=== PATIENT | female | born 1975 | race Caucasian/White ===

== ENCOUNTER 2016-07-09 10:19 | Outpatient (CLI) | payer BC ==
[2016-07-09] MEDS ORDERED: Lactated Ringers 1,000 ML IV SCH (10:30)
[2016-07-09] MEDS ORDERED: Metoclopramide 10 MG/2 ML SDV IVPUSH ONE (10:31)
[2016-07-09] MEDS: Ondansetron 4 MG/2 ML SDV IVPUSH PRN ×2 (10:51→15:59)
[2016-07-09] MEDS: Sodium Chloride 0.9% 1,000 ML IV SCH ×2 (10:52→11:56)
[2016-07-09] MEDS: Promethazine 25 MG/ML SDV IM PRN ×2 (10:58→15:59)
[2016-07-09] MEDS ORDERED: HYDROmorphone 1 MG/ML Syringe IVPUSH PRN (11:02)
[2016-07-09 11:14] LABS: CHLORIDE,CL 106 mmol/L (98-110); SODIUM,NA 136 mmol/L (136-146)
[2016-07-09] MEDS ORDERED: HYDROmorphone 2 MG/ML Syringe IVPUSH PRN (11:29)
[2016-07-09] MEDS ORDERED: HYDROmorphone 2 MG/ML Syringe IVPUSH ONE (18:18)
== END 2016-07-09 19:27 | disposition home or self-care (01) ==
LOC: MW.OBCHECK 10:19 → MW.OB 10:22 → MW.OBCHECK 19:27
PROVIDERS: ATTEND Obstetrics & Gynecology
DX: O21.0 Mild hyperemesis gravidarum (principal)
CPT/HCPCS: 36415; 59025; 80053; 81001; 82150; 83690; 85025; J1170; J2405; J2550; J2765; J7040; J7120; 96361; 96374; 96375; 96376

== ENCOUNTER 2016-07-09 19:36 | Emergency (ER) | payer BC ==
[2016-07-09 19:47] VITALS: BP 137/87
--- NOTE | 2016-07-09 20:06 | EDM.PDOC ---
ED HPI GI/ABDOMINAL - General Chief Complaint: Abdominal Pain Stated Complaint: STOMACH PAIN Time Seen by Provider: 07/09/16 19:42 Source of Information: Reports: Patient History Limitations: Reports: No limitations - History of Present Illness INITIAL COMMENTS - FREE TEXT/NARRATIVE: HISTORY AND PHYSICAL: History of present illness: [] 41-year-old female 35 weeks with a history of chronic epigastric abdominal pain with presumed diagnosis of gastritis and treated with Prilosec. Patient went to her [facility] office and was there all day today getting monitored and cleared as well as hydrated with 3 L of normal saline. Patient received multiple doses of Dilaudid but upon discharge from the clinic they would not dispense her a narcotic prescription so she came to the emergency department. Patient has hyperemesis gravidarum as she has had during this entire . She has had chronic pain during the entire and exact location as her presentation now. Surgery removed her gallbladder without as a potential contributory etiology of her pain. Despite this patient continued to have chronic epigastric pain. Case discussed with surgeon Dr. Curry who operated on this patient gallbladder and states patient has no surgical issues with her epigastrium. Patient is clear that her symptoms have no change from her chronic symptoms during the entire and she was arty cleared by the [employer] service today. She is requesting pain pills to get her through the night she can followup with her doctor or [facility] [employer] doctor tomorrow to refill her narcotic prescription Review of systems: As per history of present illness and below otherwise all systems reviewed and negative. Past medical history: As per history of present illness and as reviewed below otherwise noncontributory. Surgical history: As per history of present illness and as reviewed below otherwise noncontributory. Social history: No reported history of drug or alcohol abuse. Family history: As per history of present illness and as reviewed below otherwise noncontributory. Physical exam: HEENT: Atraumatic, normocephalic, pupils reactive, negative for conjunctival pallor or scleral icterus, mucous membranes moist, throat clear, neck supple, nontender, trachea midline. Lungs: Clear to auscultation, breath sounds equal bilaterally, chest nontender. Heart: S1S2, regular, negative for clicks, rubs, or JVD. Abdomen: Soft, nondistended, minimal epigastric tenderness no guarding or rebound. Negative for masses or hepatosplenomegaly. Negative for costovertebral tenderness. Pelvis: Stable nontender. Genitourinary: Deferred. Rectal: Deferred. Extremities: Atraumatic, negative for cords or calf pain. Neurovascular unremarkable. Neuro: Awake, alert, oriented. Cranial nerves grossly unremarkable. Cerebellum unremarkable. Motor and sensory unremarkable throughout. Exam nonfocal. Diagnostics: [] Therapeutics: [] Impression: [] Plan: [] Definitive disposition and diagnosis as appropriate pending reevaluation and review of above. - Related Data Allergies/ADRs: Allergies Allergy/AdvReac Type Severity Reaction Status Date / Time tramadol Allergy Blurred Verified 07/09/16 19:48 Vision Home Meds: Home Meds Vit W-Ca,Fe,FA(<1 mg) [ Vitamins] 1 tab PO DAILY 02/14/16 [ History] Ondansetron HCl [Zofran] 4 mg PO Q6H PRN #30 tablet 04/13/16 [Rx] Omeprazole 40 mg PO DAILY 05/11/16 [History] oxyCODONE HCl/Acetaminophen [Percocet 7.5-325 mg Tablet] 1 each PO Q4H PRN #30 tablet 05/17/16 [Rx] Past Medical History - Past Health History Medical/Surgical History: Denies Medical/Surgical History HEENT History: Reports: None Cardiovascular History: Reports: Hypertension, Other (see below) Other Cardiovascular History: Brief episode of hypertension summer 2014, resolved without medication Respiratory History: Reports: None Gastrointestinal History: Reports: Other (see below) Other Gastrointestinal History: Gall stones Genitourinary History: Reports: None [employer] History: Reports: , Spontaneous , Other (see below) Other OB/BYN History: One spontaneous and one 21 week stillborn delivery. 3 living children and currently Musculoskeletal History: Reports: None Neurological History: Reports: Migraines Psychiatric History: Reports: None Endocrine/Metabolic History: Reports: Obesity/BMI 30+ Hematologic History: Reports: None Immunologic History: Reports: None Oncologic (Cancer) History: Reports: None Dermatologic History: Reports: None - Infectious Disease History Infectious Disease History: Reports: None - Past Surgical History Head Surgeries/Procedures: Reports: None HEENT Surgical History: Reports: None Cardiovascular Surgical History: Reports: None GI Surgical History: Reports: Appendectomy, Cholecystectomy Female Surgical History: Reports: section Endocrine Surgical History: Reports: None Musculoskeletal Surgical History: Reports: None Other Musculoskeletal Surgeries/Procedures:: bunionectomy - Past Imaging History Past Imaging History: Reports: Ultrasound (Normal exam) Social & Family History - Family History Family Medical History: Noncontributory HEENT: Reports: None Cardiac: Reports: None Respiratory: Reports: None GI: Reports: None : Reports: None OBGYN: Reports: None Musculoskeletal: Reports: None Neurological: Reports: None Psychiatric: Reports: None Endocrine/Metabolic: Reports: None Hematologic: Reports: None Immunologic: Reports: None Dermatologic: Reports: None Oncologic: Reports: None - Tobacco Use Smoking Status *Q: Never Smoker Second Hand Smoke Exposure: No - Caffeine Use Caffeine Use: Reports: None - Alcohol Use Days Per Week of Alcohol Use: 0 Number of Drinks Per Day: 1 Total Drinks Per Week: 0 - Recreational Drug Use Recreational Drug Use: No Drug Use in Last 12 Months: No ED ROS GENERAL - Review of Systems Review Of Systems: See Below (Per history of present illness) ED EXAM, GI/ABD - Physical Exam Exam: See Below (per history of present illness) Course - Vital Signs Text/Narrative:: History and findings consistent with patient's chronic epigastric pain/ gastritis during entire . She has a history of hyperemesis gravidarum but his are to been extensively hydrated with extensive analgesia today. Patient is very clear she is requesting narcotics by mouth this evening discussed with patient we do not typically prescribe narcotics from the emergency room for chronic pain however is willing to give her 3 or 4 [place] so she can f to your pain control regimen and follow up with her doctor in the morning. Signs unremarkable. Patient with a benign abdomen except minimal epigastric tenderness which he says is typical for her. No guarding or rebound. Normal bowel sounds. She is aware followup [facility] at her doctor in the morning. Strict return precautions given Last Recorded V/S: Last Vital Signs Temp 36.6 C 07/09/16 19:44 Pulse 98 07/09/16 19:44 Resp 18 07/09/16 19:44 BP 137/87 07/09/16 19:44 Pulse Ox 96 07/09/16 19:44 Departure - Departure Time of Disposition: 20:01 Disposition: Home, Self-Care 01 Condition: good Clinical Impression: Abdominal pain during , Gastritis, Hyperemesis gravidarum Instructions: Gastritis, Adult, [id number], Abdominal Pain During , [id number], Hyperemesis Gravidarum Forms: ED Department Discharge Additional Instructions: There does not appear to be any change in your chronic epigastric abdominal pain during which has been presumed to be caused by gastritis and for which you're taking your omeprazole. Since you were just seen your [facility] office and were there for a good part of the day receiving IV fluids monitoring and evaluation including labs, there is nothing more to do at this time. You don 't have any signs of a surgical emergency and as mentioned you have been evaluated monitored and cleared by your [facility] service. The aware that your request for narcotic prescription will not be typically accommodated in the emergency department as we do not treat chronic pain narcotics from the emergency department. A your responsibility to be proactive in keeping your prescriptions for pain control filled and anticipating when they may run out then collaborating with your primary care doctor and [facility] [employer] doctor. Followup with your [facility] doctor tomorrow.
== END 2016-07-09 20:31 | disposition home or self-care (01) ==
LOC: MW.ED 19:36
DX: O09.523 Supervision of elderly multigravida, third trimester (principal); O26.893 Other specified pregnancy related conditions, third trimester; O21.0 Mild hyperemesis gravidarum; K29.70 Gastritis, unspecified, without bleeding; I10 Essential (primary) hypertension; E66.9 Obesity, unspecified; Z3A.35 35 weeks gestation of pregnancy; Z90.49 Acquired absence of other specified parts of digestive tract; Z88.5 Allergy status to narcotic agent
CPT/HCPCS: 99283

== ENCOUNTER → 2016-07-17 | Outpatient (CLI) | payer BC | END | disposition home or self-care (01) | LOC: MW.CHOBGYN 16:29 | PROVIDERS: ATTEND Obstetrics & Gynecology | DX: O09.529 Supervision of elderly multigravida, unspecified trimester (principal); R10.9 Unspecified abdominal pain | CPT/HCPCS: 36415; 81003; 82150; 83690; 87081 ==

== ENCOUNTER 2016-07-23 08:27 | Outpatient (CLI) | payer BC ==
[2016-07-23] MEDS: Magnesium Hydroxide 400 MG/5 ML Susp 30 ML Cup PO SCH ×2 (09:45→11:53)
== END 2016-07-23 12:30 | disposition home or self-care (01) ==
LOC: MW.OBCHECK 08:27 → MW.OB 08:28 → MW.OBCHECK 12:30
PROVIDERS: ATTEND Obstetrics & Gynecology
DX: O47.9 False labor, unspecified (principal); R10.9 Unspecified abdominal pain; K59.00 Constipation, unspecified
CPT/HCPCS: 59025; A9270

== ENCOUNTER 2016-07-26 10:51 | Inpatient (IN) | payer BC ==
[2016-07-26] MEDS ORDERED: Sodium Chloride 0.9% 10 ML Syringe FLUSH PRN ×2 (12:51→13:13)
[2016-07-26] MEDS ORDERED: Sodium Chloride 0.9% 2.5 ML Syringe FLUSH PRN ×2 (12:51→13:13)
[2016-07-26] MEDS ORDERED: Lactated Ringers 1,000 ML IV SCH ×2 (13:00→18:15)
[2016-07-26] MEDS ORDERED: ceFAZolin 2 GM in Premix Bag 1 BAG IV ONE (13:13)
[2016-07-26] MEDS ORDERED: Citric Acid/Sodium Citrate Solution 30 ML Cup PO SCH (13:15)
--- NOTE | 2016-07-26 13:44 | US ---
EXAMINATION: Abdominal ultrasound HISTORY: Chronic pain COMPARISON: MRI dated 05/13/2016 TECHNIQUE: Grayscale and color Doppler images obtained of the abdomen. FINDINGS: The liver appears normal in contour and echogenicity without a focal hepatic mass. Cholecy stectomy. There is vague fluid near the gallbladder fossa, abutting the pancreas. This measures appr oximately 2.7 x 1.3 cm. The pancreas otherwise appears normal in echotexture. The right kidney measu res 11.9 cm and the left kidney measures 12.1 cm [id number] without evidence of hydronephrosis. Th e spleen appears normal. The visualized IVC appears normal. Imaging of the aorta is not included. IMPRESSION: 1. Small amount of fluid noted near the gallbladder fossa and the pancreas. The pancreas otherwise a ppears normal. This could represent inflammatory change from duodenitis or peptic ulcer disease. Cor relation with pancreatic enzymes also may be beneficial.
[2016-07-26] MEDS ORDERED: Morphine 4 MG/ML Syringe IVPUSH ONE (13:45)
[2016-07-26] MEDS ORDERED: Ondansetron 4 MG/2 ML SDV IVPUSH ONE (13:45)
[2016-07-26 13:53] LABS: CHLORIDE,CL 106 mmol/L (98-110); SODIUM,NA 139 mmol/L (136-146)
[2016-07-26] MEDS: Lactated Ringers 1,000 ML IV SCH ×2 (14:11→16:28)
--- NOTE | 2016-07-26 14:23 | PCM.PREANE ---
Preanesthetic Assessment - Procedure Proposed Procedure: ; repeat, last 2013. - Anesthesia/Transfusion/Family Hx Anesthesia History: Prior Anesthesia Without Reaction Family History of Anesthesia Reaction: No Transfusion History: No Prior Transfusion(s) Additional History: Cholecystectomy this approx. 13 wks; with abdominal pain problem since with 40lb weight loss. Now presents with [employer] posting for C- section; concerns discussed with Tawny Alexander, and [place]. Possible problems with patient post delivery, possible problems with delivered infant, and patient is aware. - Review of Systems General: Other (Exaggerated abdominal pain expressed. monitor seems OK. Patient listened to concerns.) Pulmonary: No Symptoms Cardiovascular: No Symptoms Gastrointestinal: Abdominal pain, Nausea, Vomiting Neurological: No Symptoms Other: Reports: Anxiety - Physical Assessment Height: 5 ft 4.17 in Weight: 196 lb 9.793 oz Mental Status: Alert & Oriented x3 (plus voicing discomforts) Airway Class: Mallampati = 1 Dentition: Reports: Normal Dentition Thyro-Mental Finger Breadths: 3 Mouth Opening Finger Breadths: 3 ROM/Head Extension: Full Lungs: Clear to auscultation, Normal respiratory effort Cardiovascular: Regular Rate, Regular Rhythm - Lab Values: Laboratory Last Values WBC 11.35 K/uL (4.0-11.0) H 07/26/16 13:12 RBC 3.96 M/uL (4.30-5.90) L 07/26/16 13:12 Hgb 11.8 g/dL (12.0-16.0) L 07/26/16 13:12 Hct 36.1 % (36.0-46.0) 07/26/16 13:12 MCV 91.2 fL (80.0-98.0) 07/26/16 13:12 MCH 29.8 pg (27.0-32.0) 07/26/16 13:12 MCHC 32.7 g/dL (31.0-37.0) 07/26/16 13:12 RDW Std Deviation 48.3 fl (28.0-62.0) 07/26/16 13:12 RDW Coeff of Anabell 15 % (11.0-15.0) 07/26/16 13:12 Plt Count 293 K/uL (150-400) 07/26/16 13:12 MPV 9.80 fL (7.40-12.00) 07/26/16 13:12 Neut % (Auto) 78.3 % (48.0-80.0) 07/26/16 13:12 Lymph % (Auto) 14.2 % (16.0-40.0) L 07/26/16 13:12 [place] % (Auto) 7.1 % (0.0-15.0) 07/26/16 13:12 Eos % (Auto) 0.4 % (0.0-7.0) 07/26/16 13:12 Baso % (Auto) 0.0 % (0.0-1.5) 07/26/16 13:12 Neut # (Auto) 8.9 K/uL (1.4-5.7) H 07/26/16 13:12 Lymph # (Auto) 1.6 K/uL (0.6-2.4) 07/26/16 13:12 [place] # (Auto) 0.8 K/uL (0.0-0.8) 07/26/16 13:12 Eos # (Auto) 0.0 K/uL (0.0-0.7) 07/26/16 13:12 Baso # (Auto) 0.0 K/uL (0.0-0.1) 07/26/16 13:12 Nucleated RBC % 0.0 /100WBC 07/26/16 13:12 Nucleated RBCs # 0 K/uL 07/26/16 13:12 Sodium 139 mmol/L (136-146) 07/26/16 13:12 Potassium 4.1 mmol/L (3.5-5.1) 07/26/16 13:12 Chloride 106 mmol/L (98-110) 07/26/16 13:12 Carbon Dioxide 19 mmol/L (21-31) L 07/26/16 13:12 BUN 5 mg/dL (6.0-23.0) L 07/26/16 13:12 Creatinine 0.6 mg/dL (0.6-1.5) 07/26/16 13:12 Est Cr Clr Drug Dosing 109.49 mL/min 07/26/16 13:12 Estimated GFR (MDRD) > 60.0 ml/min 07/26/16 13:12 Glucose 78 mg/dL (60-110) 07/26/16 13:12 Calcium 9.1 mg/dL (8.8-10.8) 07/26/16 13:12 Total Bilirubin 0.4 mg/dL (0.1-1.5) 07/26/16 11:33 Direct Bilirubin 0.2 mg/dL (0.0-0.5) 07/26/16 11:33 Indirect Bilirubin 0.2 mg/dL (0.0-1.0) 07/26/16 11:33 AST 10 IU/L (5-40) 07/26/16 11:33 ALT 8 IU/L (8-54) 07/26/16 11:33 Alkaline Phosphatase 127 (40-150) 07/26/16 11:33 Total Protein 6.4 g/dL (6.0-8.0) 07/26/16 11:33 Albumin 3.4 g/dL (3.5-5.0) L 07/26/16 11:33 Globulin 3.0 g/dL (2.0-3.5) 07/26/16 11:33 Albumin/Globulin Ratio 1.1 (1.3-2.8) L 07/26/16 11:33 Amylase 75 U/L (10-90) 07/26/16 11:33 Lipase 24 U/L (7-80) 07/26/16 11:33 - Allergies Allergies/Adverse Reactions: Allergies Allergy/AdvReac Type Severity Reaction Status Date / Time tramadol Allergy Blurred Verified 07/09/16 19:48 Vision - Blood Blood Available: No Product(s) Available: None - Anesthesia Plan Free Text/Narrative:: Discussion in person with all doctors involved. Alternate plans raised but not course chosen. Pre-Op Medication Ordered: Other (to receive some "analgesic" now per RN (order from [facility])) - Acknowledgements Anesthesia Type Planned: Spinal Pt an Appropriate Candidate for the Planned Anesthesia: Yes Alternatives and Risks of Anesthesia Discussed w Pt/Guardian: Yes Pt/Guardian Understands and Agrees with Anesthesia Plan: Yes PreAnesthesia Questionnaire - Past Health History Medical/Surgical History: Denies Medical/Surgical History HEENT History: Reports: None Cardiovascular History: Reports: Hypertension, Other (see below) Other Cardiovascular History: Brief episode of hypertension summer 2014, resolved without medication Respiratory History: Reports: None Gastrointestinal History: Reports: Other (see below) Other Gastrointestinal History: Gall stones Genitourinary History: Reports: None OBSTETRICS GYNECOLOGY PHYSICIAN History: Reports: , Spontaneous , Other (see below) Other OB/BYN History: One spontaneous and one 21 week stillborn delivery. 3 living children and currently Musculoskeletal History: Reports: None Neurological History: Reports: Migraines Psychiatric History: Reports: None Endocrine/Metabolic History: Reports: Obesity/BMI 30+ Hematologic History: Reports: None Immunologic History: Reports: None Oncologic (Cancer) History: Reports: None Dermatologic History: Reports: None - Infectious Disease History Infectious Disease History: Reports: None - Past Surgical History Head Surgeries/Procedures: Reports: None HEENT Surgical History: Reports: None Cardiovascular Surgical History: Reports: None GI Surgical History: Reports: Appendectomy, Cholecystectomy Female Surgical History: Reports: section Endocrine Surgical History: Reports: None Musculoskeletal Surgical History: Reports: None Other Musculoskeletal Surgeries/Procedures:: bunionectomy - Past Imaging History Past Imaging History: Reports: Ultrasound (Normal exam) - SUBSTANCE USE Smoking Status *Q: Never Smoker Tobacco Use Within Last Twelve Months: No Second Hand Smoke Exposure: No Days Per Week of Alcohol Use: 0 Number of Drinks Per Day: 1 Total Drinks Per Week: 0 Recreational Drug Use History: No - HOME MEDS Home Medications: Home Meds Vit W-Ca,Fe,FA(<1 mg) [ Vitamins] 1 tab PO DAILY 02/14/16 [ History] Ondansetron HCl [Zofran] 4 mg PO Q6H PRN #30 tablet 04/13/16 [Rx] Omeprazole 40 mg PO DAILY 05/11/16 [History] oxyCODONE HCl/Acetaminophen [Percocet 7.5-325 mg Tablet] 1 each PO Q4H PRN #30 tablet 05/17/16 [Rx] - CURRENT (IN HOUSE) MEDS Current Meds: Current Medications Citric Acid/Sodium Citrate (Bicitra Solution) 30 ml PO .ONCE MAGALY Lactated Ringer's (Ringers, Lactated) 1,000 mls @ 125 mls/hr IV ASDIRECTED MAGALY Lactated Ringer's (Ringers, Lactated) 1,000 mls @ 500 mls/hr IV .BOLUS MAGALY Last Admin: 07/26/16 14:11 Dose: 500 mls/hr Sodium Chloride (Saline Flush) 10 ml FLUSH ASDIRECTED PRN PRN Reason: Keep Vein Open Sodium Chloride (Saline Flush) 2.5 ml FLUSH ASDIRECTED PRN PRN Reason: Keep Vein Open Sodium Chloride (Saline Flush) 10 ml FLUSH ASDIRECTED PRN PRN Reason: Keep Vein Open Sodium Chloride (Saline Flush) 2.5 ml FLUSH ASDIRECTED PRN PRN Reason: Keep Vein Open Discontinued Medications Cefazolin Sodium/Dextrose 2 gm (/ Premix) 50 mls @ 100 mls/hr IV ONETIME ONE Stop: 07/26/16 13:42 Morphine Sulfate (Morphine) 4 mg IVPUSH ONETIME ONE Stop: 07/26/16 13:46 Last Admin: 07/26/16 14:11 Dose: 4 mg Ondansetron HCl (Zofran) 4 mg IVPUSH ONETIME ONE Stop: 07/26/16 13:46 Last Admin: 07/26/16 14:11 Dose: 4 mg Preanesthetic Assessment - ANESTHESIA/TRANSFUSION/FAMILY HX Anesthesia/Transfusion History: No Prior Transfusion(s), Prior Anesthesia (C- section and appy: no anesthesia issues noted) Family History of Anesthesia Reaction: No - PHYSICAL ASSESSMENT Height: 5 ft 4.17 in Weight: 196 lb 9.793 oz - LAB Values: Laboratory Last Values WBC 11.35 K/uL (4.0-11.0) H 07/26/16 13:12 RBC 3.96 M/uL (4.30-5.90) L 07/26/16 13:12 Hgb 11.8 g/dL (12.0-16.0) L 07/26/16 13:12 Hct 36.1 % (36.0-46.0) 07/26/16 13:12 MCV 91.2 fL (80.0-98.0) 07/26/16 13:12 MCH 29.8 pg (27.0-32.0) 07/26/16 13:12 MCHC 32.7 g/dL (31.0-37.0) 07/26/16 13:12 RDW Std Deviation 48.3 fl (28.0-62.0) 07/26/16 13:12 RDW Coeff of Anabell 15 % (11.0-15.0) 07/26/16 13:12 Plt Count 293 K/uL (150-400) 07/26/16 13:12 MPV 9.80 fL (7.40-12.00) 07/26/16 13:12 Neut % (Auto) 78.3 % (48.0-80.0) 07/26/16 13:12 Lymph % (Auto) 14.2 % (16.0-40.0) L 07/26/16 13:12 [place] % (Auto) 7.1 % (0.0-15.0) 07/26/16 13:12 Eos % (Auto) 0.4 % (0.0-7.0) 07/26/16 13:12 Baso % (Auto) 0.0 % (0.0-1.5) 07/26/16 13:12 Neut # (Auto) 8.9 K/uL (1.4-5.7) H 07/26/16 13:12 Lymph # (Auto) 1.6 K/uL (0.6-2.4) 07/26/16 13:12 [place] # (Auto) 0.8 K/uL (0.0-0.8) 07/26/16 13:12 Eos # (Auto) 0.0 K/uL (0.0-0.7) 07/26/16 13:12 Baso # (Auto) 0.0 K/uL (0.0-0.1) 07/26/16 13:12 Nucleated RBC % 0.0 /100WBC 07/26/16 13:12 Nucleated RBCs # 0 K/uL 07/26/16 13:12 Sodium 139 mmol/L (136-146) 07/26/16 13:12 Potassium 4.1 mmol/L (3.5-5.1) 07/26/16 13:12 Chloride 106 mmol/L (98-110) 07/26/16 13:12 Carbon Dioxide 19 mmol/L (21-31) L 07/26/16 13:12 BUN 5 mg/dL (6.0-23.0) L 07/26/16 13:12 Creatinine 0.6 mg/dL (0.6-1.5) 07/26/16 13:12 Est Cr Clr Drug Dosing 109.49 mL/min 07/26/16 13:12 Estimated GFR (MDRD) > 60.0 ml/min 07/26/16 13:12 Glucose 78 mg/dL (60-110) 07/26/16 13:12 Calcium 9.1 mg/dL (8.8-10.8) 07/26/16 13:12 Total Bilirubin 0.4 mg/dL (0.1-1.5) 07/26/16 11:33 Direct Bilirubin 0.2 mg/dL (0.0-0.5) 07/26/16 11:33 Indirect Bilirubin 0.2 mg/dL (0.0-1.0) 07/26/16 11:33 AST 10 IU/L (5-40) 07/26/16 11:33 ALT 8 IU/L (8-54) 07/26/16 11:33 Alkaline Phosphatase 127 (40-150) 07/26/16 11:33 Total Protein 6.4 g/dL (6.0-8.0) 07/26/16 11:33 Albumin 3.4 g/dL (3.5-5.0) L 07/26/16 11:33 Globulin 3.0 g/dL (2.0-3.5) 07/26/16 11:33 Albumin/Globulin Ratio 1.1 (1.3-2.8) L 07/26/16 11:33 Amylase 75 U/L (10-90) 07/26/16 11:33 Lipase 24 U/L (7-80) 07/26/16 11:33 - ALLERGIES Allergies/Adverse Reactions: Allergies Allergy/AdvReac Type Severity Reaction Status Date / Time tramadol Allergy Blurred Verified 07/09/16 19:48 Vision
--- NOTE | 2016-07-26 15:38 | PCM.CONS ---
H&P History of Present Illness - General Date of Service: 07/26/16 Admit Problem/Dx: Admission Diagnosis/Problem Admission Diagnosis/Problem Source of Information: Patient History Limitations: Reports: Other (In severe pain) - History of Present Illness Initial Comments - Free Text/Narative: Patient is a 41 yo F who presents to the hospital with epigastric pain and pressure. The patient has had significant issues with nausea, vomiting and epigastric pain since becoming . She underwent a laparoscopic cholecystectomy on 02/15/17. This was complicated by severe post operative pain. This improved with IV pain medications. She was seen in clinic 2 weeks later with slight improvement in her symptoms. She has been seen multiple times since then with the same symptoms. She was started on narcotic pain medications which was the only medication that gave her relief. She has been on PPIs with no improvement in her symptoms. She states that the pain is constant and located in her lower chest. It is squeezing and feels pressure. She denies burning. She states that it does not wax or wane. Nothing makes it better. Pain is worse with movement and palpation of the upper abdomen. She has associated symptoms of nausea but no vomiting. She denies vomiting blood. She has not had a fever or chills at home. She stopped her narcotic pain medications 6 days ago. The pain has progressively gotten worse since then. Upper Abdomen Pain Score (Numeric/FACES): 9 - Related Data Allergies/Adverse Reactions: Allergies Allergy/AdvReac Type Severity Reaction Status Date / Time tramadol Allergy Blurred Verified 07/09/16 19:48 [facility] Home Medications: Home Meds Vit W-Ca,Fe,FA(<1 mg) [ Vitamins] 1 tab PO DAILY 02/14/16 [ History] Ondansetron HCl [Zofran] 4 mg PO Q6H PRN #30 tablet 04/13/16 [Rx] Omeprazole 40 mg PO DAILY 05/11/16 [History] oxyCODONE HCl/Acetaminophen [Percocet 7.5-325 mg Tablet] 1 each PO Q4H PRN #30 tablet 05/17/16 [Rx] Past Medical History - Past Health History Medical/Surgical History: Denies Medical/Surgical History HEENT History: Reports: None Cardiovascular History: Reports: Hypertension, Other (see below) Other Cardiovascular History: Brief episode of hypertension summer 2014, resolved without medication Respiratory History: Reports: None Gastrointestinal History: Reports: Other (see below) Other Gastrointestinal History: Gall stones Genitourinary History: Reports: None 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 3 living children and currently Musculoskeletal History: Reports: None Neurological History: Reports: Migraines Psychiatric History: Reports: None Endocrine/Metabolic History: Reports: Obesity/BMI 30+ Hematologic History: Reports: None Immunologic History: Reports: None Oncologic (Cancer) History: Reports: None Dermatologic History: Reports: None - Infectious Disease History Infectious Disease History: Reports: None - Past Surgical History Head Surgeries/Procedures: Reports: None HEENT Surgical History: Reports: None Cardiovascular Surgical History: Reports: None GI Surgical History: Reports: Appendectomy, Cholecystectomy Female Surgical History: Reports: section Endocrine Surgical History: Reports: None Musculoskeletal Surgical History: Reports: None Other Musculoskeletal Surgeries/Procedures:: bunionectomy - Past Imaging History Past Imaging History: Reports: Ultrasound (Normal exam) Social & Family History - Family History Family Medical History: Noncontributory HEENT: Reports: None Cardiac: Reports: None Respiratory: Reports: None GI: Reports: None : Reports: None OBGYN: Reports: None Musculoskeletal: Reports: None Neurological: Reports: None Psychiatric: Reports: None Endocrine/Metabolic: Reports: None Hematologic: Reports: None Immunologic: Reports: None Dermatologic: Reports: None Oncologic: Reports: None - Tobacco Use Smoking Status *Q: Never Smoker Second Hand Smoke Exposure: No - Caffeine Use Caffeine Use: Reports: None - Alcohol Use Days Per Week of Alcohol Use: 0 Number of Drinks Per Day: 1 Total Drinks Per Week: 0 - Recreational Drug Use Recreational Drug Use: No Drug Use in Last 12 Months: No H&P Review of Systems - Review of Systems: Review Of Systems: ROS reveals no pertinent complaints other than HPI. Exam - Exam Exam: See Below - Vital Signs Weight: 89.182 kg - Exam General: alert, severe distress HEENT: Conjunctiva clear Neck: supple, trachea midline Lungs: Clear to auscultation, Normal respiratory effort Cardiovascular: regular rate, regular rhythm Abdomen: other (Patient has pain out of proportion to her exam. If I brush my hand across her clothes she jumps in pain. I layed my hand over the top of her abdomen and she complains of severe pain. She is soft when I can distract her. She has no pain with palpation or percussion of the lower quadrants. ) Extremities: normal inspection - Patient Data Lab Results last 24 hrs: Laboratory Results - last 24 hr 07/26/16 07/26/16 07/26/16 Range/Units 11:33 13:12 13:12 WBC 11.35 H (4.0-11.0) K/uL RBC 3.96 L (4.30-5.90) M/uL Hgb 11.8 L (12.0-16.0) g/dL Hct 36.1 (36.0-46.0) % MCV 91.2 (80.0-98.0) fL MCH 29.8 (27.0-32.0) pg MCHC 32.7 (31.0-37.0) g/dL RDW Std Deviation 48.3 (28.0-62.0) fl RDW Coeff of Anabell 15 (11.0-15.0) % Plt Count 293 (150-400) K/uL MPV 9.80 (7.40-12.00) fL Neut % (Auto) 78.3 (48.0-80.0) % Lymph % (Auto) 14.2 L (16.0-40.0) % Hawkins % (Auto) 7.1 (0.0-15.0) % Eos % (Auto) 0.4 (0.0-7.0) % Baso % (Auto) 0.0 (0.0-1.5) % Neut # (Auto) 8.9 H (1.4-5.7) K/uL Lymph # (Auto) 1.6 (0.6-2.4) K/uL Hawkins # (Auto) 0.8 (0.0-0.8) K/uL Eos # (Auto) 0.0 (0.0-0.7) K/uL Baso # (Auto) 0.0 (0.0-0.1) K/uL Nucleated RBC % 0.0 /100WBC Nucleated RBCs # 0 K/uL Sodium 139 (136-146) mmol/L Potassium 4.1 (3.5-5.1) mmol/L Chloride 106 (98-110) mmol/L Carbon Dioxide 19 L (21-31) mmol/L BUN 5 L (6.0-23.0) mg/dL Creatinine 0.6 (0.6-1.5) mg/dL Est Cr Clr Drug Dosing 109.49 mL/min Estimated GFR (MDRD) > 60.0 ml/min Glucose 78 (60-110) mg/dL Calcium 9.1 (8.8-10.8) mg/dL Total Bilirubin 0.4 (0.1-1.5) mg/dL Direct Bilirubin 0.2 (0.0-0.5) mg/dL Indirect Bilirubin 0.2 (0.0-1.0) mg/dL AST 10 (5-40) IU/L ALT 8 (8-54) IU/L Alkaline Phosphatase 127 (40-150) Total Protein 6.4 (6.0-8.0) g/dL Albumin 3.4 L (3.5-5.0) g/dL Globulin 3.0 (2.0-3.5) g/dL Albumin/Globulin Ratio 1.1 L (1.3-2.8) Amylase 75 (10-90) U/L Lipase 24 (7-80) U/L Blood Type Antibody Screen 07/26/16 Range/Units 13:12 WBC (4.0-11.0) K/uL RBC (4.30-5.90) M/uL Hgb (12.0-16.0) g/dL Hct (36.0-46.0) % MCV (80.0-98.0) fL MCH (27.0-32.0) pg MCHC (31.0-37.0) g/dL RDW Std Deviation (28.0-62.0) fl RDW Coeff of Anabell (11.0-15.0) % Plt Count (150-400) K/uL MPV (7.40-12.00) fL Neut % (Auto) (48.0-80.0) % Lymph % (Auto) (16.0-40.0) % Hawkins % (Auto) (0.0-15.0) % Eos % (Auto) (0.0-7.0) % Baso % (Auto) (0.0-1.5) % Neut # (Auto) (1.4-5.7) K/uL Lymph # (Auto) (0.6-2.4) K/uL Hawkins # (Auto) (0.0-0.8) K/uL Eos # (Auto) (0.0-0.7) K/uL Baso # (Auto) (0.0-0.1) K/uL Nucleated RBC % /100WBC Nucleated RBCs # K/uL Sodium (136-146) mmol/L Potassium (3.5-5.1) mmol/L Chloride (98-110) mmol/L Carbon Dioxide (21-31) mmol/L BUN (6.0-23.0) mg/dL Creatinine (0.6-1.5) mg/dL Est Cr Clr Drug Dosing mL/min Estimated GFR (MDRD) ml/min Glucose (60-110) mg/dL Calcium (8.8-10.8) mg/dL Total Bilirubin (0.1-1.5) mg/dL Direct Bilirubin (0.0-0.5) mg/dL Indirect Bilirubin (0.0-1.0) mg/dL AST (5-40) IU/L ALT (8-54) IU/L Alkaline Phosphatase (40-150) Total Protein (6.0-8.0) g/dL Albumin (3.5-5.0) g/dL Globulin (2.0-3.5) g/dL Albumin/Globulin Ratio (1.3-2.8) Amylase (10-90) U/L Lipase (7-80) U/L Blood Type A POSITIVE Antibody Screen NEGATIVE Result Diagrams: 07/26/16 13:12 07/26/16 13:12 Consult PN Assessment/Plan Procedures: Procedures ALPHA-FETOPROTEIN SERUM (03/03/16) ASSAY OF AMYLASE (07/17/16) ASSAY OF BLOOD/URIC ACID (02/25/14) ASSAY OF ESTRIOL (03/03/16) ASSAY OF LIPASE (07/17/16) ASSAY OF PROTEIN URINE (01/10/16) ASSAY OF URINE CREATININE (01/10/16) ASSAY THYROID STIM HORMONE (05/03/15) BLOOD TYPING SEROLOGIC ABO (03/03/16) BLOOD TYPING SEROLOGIC RH(D) (03/03/16) CHORIONIC GONADOTROPIN TEST (03/03/16) CHYLMD TRACH DNA AMP PROBE (01/07/16) COMPLETE CBC AUTOMATED (06/02/16) COMPLETE CBC W/AUTO DIFF WBC (07/09/16) COMPREHEN METABOLIC PANEL (07/09/16) CT HEAD/BRAIN W/O DYE (04/25/15) CULTURE OTHR SPECIMN AEROBIC (01/07/16) CULTURE SCREEN ONLY (07/17/16) ECHO EXAM OF ABDOMEN (02/10/16) ELECTROCARDIOGRAM TRACING (04/25/15) EMERGENCY DEPT VISIT (07/09/16) EMERGENCY DEPT VISIT (02/10/16) NON-STRESS TEST (07/23/16) GLUCOSE TEST (06/02/16) GLUCOSE TOLERANCE TEST (GTT) (06/16/16) GLYCOSYLATED HEMOGLOBIN TEST (06/14/16) HEPATITIS B SURFACE AG IA (03/03/16) HEPATITIS C AB TEST (03/03/16) HIV-1 AG W/HIV-1 & HIV-2 AB (03/03/16) HYDRATE IV INFUSION ADD-ON (04/13/16) INHIBIN A (03/03/16) LAPAROSCOPIC CHOLECYSTECTOMY (02/16/16) LIPID PANEL (05/03/15) N.GONORRHOEAE DNA AMP PROB (01/07/16) OB US >/= 14 WKS SNGL FETUS (03/28/16) OB US LIMITED FETUS(S) (04/26/16) RBC ANTIBODY SCREEN (06/02/16) ROUTINE VENIPUNCTURE (07/17/16) RUBELLA ANTIBODY (03/03/16) SYPHILIS TEST NON-TREP QUAL (03/03/16) THER/PROPH/DIAG INJ IV PUSH (04/13/16) TX/PRO/DX INJ NEW DRUG ADDON (02/10/16) TX/PRO/DX INJ SAME DRUG LOCATION WORKER (04/13/16) URINALYSIS AUTO W/O SCOPE (07/17/16) URINALYSIS AUTO W/SCOPE (07/09/16) URINE BACTERIA CULTURE (07/31/13) URINE CULTURE/COLONY COUNT (03/03/16) URINE TEST (01/07/16) (1) Epigastric abdominal pain SNOMED Code(s): 13153167 Code(s): R10.13 - EPIGASTRIC PAIN Priority: High Current Visit: No Problem List Initiated/Reviewed/Updated: Yes My Orders last 24 hours: My Active Orders 07/26/16 15:32 HELICOBACTER PYLORI AB IGG [CHEM] Urgent Plan: This patients has pain out of proportion to her exam. She has had multiple work ups looking for a source of her pain. Her vitals are currently stable. Her labs show a WBC that is within normal limits for someone who is . Her hemoglobin is normal for . Her BMP and LFTs are all within normal limits. Her MRI in April showed no evidence of biliary abnormalities. Her US today showed a small amount of fluid in the GB fossa and around the pancreas that could suggest duodenitis or PUD. Her labs show no evidence of pancreatitis. She is too far out from her cholecystectomy to have a biliary leak. It is very rare to develop PUD in and she has been on PPI therapy. Multiple epidemiologic studies support a decreased incidence of PUD in . The work up for this would include an EGD which I would not do with the patient at this time. She is not unstable enough to perform an emergent EGD either. I have discussed this case with Dr. Avila. He will be performing a on the patient since her symptoms have only been present since . I ordered an H pylori blood antigen test to check for the presence of this bacteria. Post operatively we will re-assess her symptoms. I would suggest having her on protonix 40mg BID in case of duodenitis or PUD. If the patient remains stable will consider outpatient EGD. The patient may also be going through opioid withdrawl as well. Her physical exam was perplexing as she was able to rub her abdomen with no pain but I could not lay my hand on her abdomen without her voluntarily guarding. There are no case reports of SMA emboli in (this sometimes causes abdominal pain out of proportion to exam.) Will continue to follow postoperatively. Please call with any questions or concerns.
--- NOTE | 2016-07-26 15:59 | US ---
EXAMINATION: Transabdominal obstetric ultrasound HISTORY: Pain, biophysical profile COMPARISON: 04/26/2016 TECHNIQUE: Grayscale, color Doppler and spectral Doppler images obtained. FINDINGS: There is a single live intrauterine in the cephalic position. The placenta is po sterior and appears intact. There is positive breathing, movement, and tone. Amniotic fluid le brittney is normal. Heart rate is 146 beats per minutes. Both the renal pelvises appear prominent m easuring 8 to 9 mm. IMPRESSION: 1. Biophysical profile 11/28. 2. Mildly prominent renal pelvises bilaterally.
--- NOTE | 2016-07-26 16:07 | PCM.LDHP ---
L&D History of Present Illness - General Admit Problem/Dx: Admission Diagnosis/Problem Admission Diagnosis/Problem Source of Information: Patient History Limitations: Reports: No limitations - History of Present Illness Pain Score: 9 Improves with: Reports: None Worsens with: Reports: None Associated Symptoms: Reports: N - Related Data Allergies/Adverse Reactions: Allergies Allergy/AdvReac Type Severity Reaction Status Date / Time tramadol Allergy Blurred Verified 07/09/16 19:48 [facility] Home Medications: Home Meds Vit W-Ca,Fe,FA(<1 mg) [ Vitamins] 1 tab PO DAILY 02/14/16 [ History] Ondansetron HCl [Zofran] 4 mg PO Q6H PRN #30 tablet 04/13/16 [Rx] Omeprazole 40 mg PO DAILY 05/11/16 [History] oxyCODONE HCl/Acetaminophen [Percocet 7.5-325 mg Tablet] 1 each PO Q4H PRN #30 tablet 05/17/16 [Rx] Past Medical History - Past Health History Medical/Surgical History: Denies Medical/Surgical History HEENT History: Reports: None Cardiovascular History: Reports: Hypertension, Other (see below) Other Cardiovascular History: Brief episode of hypertension summer 2014, resolved without medication Respiratory History: Reports: None Gastrointestinal History: Reports: Other (see below) Other Gastrointestinal History: Gall stones Genitourinary History: Reports: None 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 3 living children and currently Musculoskeletal History: Reports: None Neurological History: Reports: Migraines Psychiatric History: Reports: None Endocrine/Metabolic History: Reports: Obesity/BMI 30+ Hematologic History: Reports: None Immunologic History: Reports: None Oncologic (Cancer) History: Reports: None Dermatologic History: Reports: None - Infectious Disease History Infectious Disease History: Reports: None - Past Surgical History Head Surgeries/Procedures: Reports: None HEENT Surgical History: Reports: None Cardiovascular Surgical History: Reports: None GI Surgical History: Reports: Appendectomy, Cholecystectomy Female Surgical History: Reports: section Endocrine Surgical History: Reports: None Musculoskeletal Surgical History: Reports: None Other Musculoskeletal Surgeries/Procedures:: bunionectomy - Past Imaging History Past Imaging History: Reports: Ultrasound (Normal exam) Social & Family History - Family History Family Medical History: Noncontributory HEENT: Reports: None Cardiac: Reports: None Respiratory: Reports: None GI: Reports: None : Reports: None OBGYN: Reports: None Musculoskeletal: Reports: None Neurological: Reports: None Psychiatric: Reports: None Endocrine/Metabolic: Reports: None Hematologic: Reports: None Immunologic: Reports: None Dermatologic: Reports: None Oncologic: Reports: None - Tobacco Use Smoking Status *Q: Never Smoker Second Hand Smoke Exposure: No - Caffeine Use Caffeine Use: Reports: None - Alcohol Use Days Per Week of Alcohol Use: 0 Number of Drinks Per Day: 1 Total Drinks Per Week: 0 - Recreational Drug Use Recreational Drug Use: No Drug Use in Last 12 Months: No H&P Review of Systems - Review of Systems: Review Of Systems: See Below General: Reports: no symptoms HEENT: Reports: no symptoms Pulmonary: Reports: No Symptoms Cardiovascular: Reports: no symptoms Gastrointestinal: Reports: No symptoms Genitourinary: Reports: no symptoms Musculoskeletal: Reports: no symptoms Skin: Reports: no symptoms Psychiatric: Reports: no symptoms Neurological: Reports: No Symptoms Hematologic/Lymphatic: Reports: no symptoms Immunologic: Reports: no symptoms L&D Exam - Exam Exam: See Below - Vital Signs Weight: 89.182 kg - OB Specific Contraction Intensity: Mild heart tones: present heart tones per min: 141 Presentation: Vertex - Patient Data Lab Results last 24 hrs: Laboratory Results - last 24 hr 07/26/16 07/26/16 07/26/16 Range/Units 11:33 13:12 13:12 WBC 11.35 H (4.0-11.0) K/uL RBC 3.96 L (4.30-5.90) M/uL Hgb 11.8 L (12.0-16.0) g/dL Hct 36.1 (36.0-46.0) % MCV 91.2 (80.0-98.0) fL MCH 29.8 (27.0-32.0) pg MCHC 32.7 (31.0-37.0) g/dL RDW Std Deviation 48.3 (28.0-62.0) fl RDW Coeff of Anabell 15 (11.0-15.0) % Plt Count 293 (150-400) K/uL MPV 9.80 (7.40-12.00) fL Neut % (Auto) 78.3 (48.0-80.0) % Lymph % (Auto) 14.2 L (16.0-40.0) % [place] % (Auto) 7.1 (0.0-15.0) % Eos % (Auto) 0.4 (0.0-7.0) % Baso % (Auto) 0.0 (0.0-1.5) % Neut # (Auto) 8.9 H (1.4-5.7) K/uL Lymph # (Auto) 1.6 (0.6-2.4) K/uL [place] # (Auto) 0.8 (0.0-0.8) K/uL Eos # (Auto) 0.0 (0.0-0.7) K/uL Baso # (Auto) 0.0 (0.0-0.1) K/uL Nucleated RBC % 0.0 /100WBC Nucleated RBCs # 0 K/uL Sodium 139 (136-146) mmol/L Potassium 4.1 (3.5-5.1) mmol/L Chloride 106 (98-110) mmol/L Carbon Dioxide 19 L (21-31) mmol/L BUN 5 L (6.0-23.0) mg/dL Creatinine 0.6 (0.6-1.5) mg/dL Est Cr Clr Drug Dosing 109.49 mL/min Estimated GFR (MDRD) > 60.0 ml/min Glucose 78 (60-110) mg/dL Calcium 9.1 (8.8-10.8) mg/dL Total Bilirubin 0.4 (0.1-1.5) mg/dL Direct Bilirubin 0.2 (0.0-0.5) mg/dL Indirect Bilirubin 0.2 (0.0-1.0) mg/dL AST 10 (5-40) IU/L ALT 8 (8-54) IU/L Alkaline Phosphatase 127 (40-150) Total Protein 6.4 (6.0-8.0) g/dL Albumin 3.4 L (3.5-5.0) g/dL Globulin 3.0 (2.0-3.5) g/dL Albumin/Globulin Ratio 1.1 L (1.3-2.8) Amylase 75 (10-90) U/L Lipase 24 (7-80) U/L H. pylori IgG Antibody (NEG) Blood Type Antibody Screen 07/26/16 07/26/16 Range/Units 13:12 13:12 WBC (4.0-11.0) K/uL RBC (4.30-5.90) M/uL Hgb (12.0-16.0) g/dL Hct (36.0-46.0) % MCV (80.0-98.0) fL MCH (27.0-32.0) pg MCHC (31.0-37.0) g/dL RDW Std Deviation (28.0-62.0) fl RDW Coeff of Anabell (11.0-15.0) % Plt Count (150-400) K/uL MPV (7.40-12.00) fL Neut % (Auto) (48.0-80.0) % Lymph % (Auto) (16.0-40.0) % [place] % (Auto) (0.0-15.0) % Eos % (Auto) (0.0-7.0) % Baso % (Auto) (0.0-1.5) % Neut # (Auto) (1.4-5.7) K/uL Lymph # (Auto) (0.6-2.4) K/uL [place] # (Auto) (0.0-0.8) K/uL Eos # (Auto) (0.0-0.7) K/uL Baso # (Auto) (0.0-0.1) K/uL Nucleated RBC % /100WBC Nucleated RBCs # K/uL Sodium (136-146) mmol/L Potassium (3.5-5.1) mmol/L Chloride (98-110) mmol/L Carbon Dioxide (21-31) mmol/L BUN (6.0-23.0) mg/dL Creatinine (0.6-1.5) mg/dL Est Cr Clr Drug Dosing mL/min Estimated GFR (MDRD) ml/min Glucose (60-110) mg/dL Calcium (8.8-10.8) mg/dL Total Bilirubin (0.1-1.5) mg/dL Direct Bilirubin (0.0-0.5) mg/dL Indirect Bilirubin (0.0-1.0) mg/dL AST (5-40) IU/L ALT (8-54) IU/L Alkaline Phosphatase (40-150) Total Protein (6.0-8.0) g/dL Albumin (3.5-5.0) g/dL Globulin (2.0-3.5) g/dL Albumin/Globulin Ratio (1.3-2.8) Amylase (10-90) U/L Lipase (7-80) U/L H. pylori IgG Antibody NEGATIVE (NEG) Blood Type A POSITIVE Antibody Screen NEGATIVE Result Diagrams: 07/26/16 13:12 07/26/16 13:12 Problem List Initiated/Reviewed/Updated: Yes Orders Last 24hrs: Active Orders 24 hr Category Date Time Status Patient Status [ADT] Routine ADT 07/26/16 13:13 Active Non Stress Test [RC] PER UNIT ROUTINE Care 07/26/16 13:13 Active Notify Provider Consults [RC] ASDIRECTED Care 07/26/16 11:13 Active Notify Provider Vital Signs [RC] PRN Care 07/26/16 13:16 Active Peripheral IV Care [RC] PRN Care 07/26/16 13:13 Active Procedure Site Prep Instruct [RC] ASDIRECTED Care 07/26/16 13:13 Active Up ad Maryam [RC] ASDIRECTED Care 07/26/16 13:13 Active Verify Patient Consent Obtain [RC] ASDIRECTED Care 07/26/16 12:51 Active Verify Patient Consent Obtain [RC] ASDIRECTED Care 07/26/16 13:13 Active Vital Signs [RC] PER UNIT ROUTINE Care 07/26/16 13:13 Active Consult to Physician [CONS] Urgent Cons 07/26/16 11:03 Active Nothing per Oral Now Diet [DIET] Diet 07/26/16 Breakfast Active Citric Acid/Sodium Citrate [Bicitra Solution] Med 07/26/16 13:15 Active 30 ml PO .ONCE Lactated Ringers [Ringers, Lactated] 1,000 ml Med 07/26/16 13:15 Active IV .BOLUS Lactated Ringers [Ringers, Lactated] 1,000 ml Med 07/26/16 13:00 Active IV ASDIRECTED Sodium Chloride 0.9% [Saline Flush] Med 07/26/16 12:51 Active 10 ml FLUSH ASDIRECTED PRN Sodium Chloride 0.9% [Saline Flush] Med 07/26/16 13:13 Active 10 ml FLUSH ASDIRECTED PRN Sodium Chloride 0.9% [Saline Flush] Med 07/26/16 12:51 Active 2.5 ml FLUSH ASDIRECTED PRN Sodium Chloride 0.9% [Saline Flush] Med 07/26/16 13:13 Active 2.5 ml FLUSH ASDIRECTED PRN Medication Administration Instruction [OM.PC] Routine Oth 07/26/16 12:51 Ordered Peripheral IV Insertion Adult [OM.PC] Routine Ot 07/26/16 12:51 Ordered Peripheral IV Insertion Adult [OM.PC] Routine Ot 07/26/16 13:13 Ordered Schedule Procedure [COMM] Per Unit Routine Oth 07/26/16 13:13 Ordered Resuscitation Status Routine Resus Stat 07/26/16 13:13 Ordered Medication Orders Citric Acid/Sodium Citrate (Bicitra Solution) 30 ml PO .ONCE MAGALY Lactated Ringer's (Ringers, Lactated) 1,000 mls @ 125 mls/hr IV ASDIRECTED MAGALY Lactated Ringer's (Ringers, Lactated) 1,000 mls @ 500 mls/hr IV .BOLUS MAGALY Last Admin: 07/26/16 14:11 Dose: 500 mls/hr Sodium Chloride (Saline Flush) 10 ml FLUSH ASDIRECTED PRN PRN Reason: Keep Vein Open Sodium Chloride (Saline Flush) 2.5 ml FLUSH ASDIRECTED PRN PRN Reason: Keep Vein Open Sodium Chloride (Saline Flush) 10 ml FLUSH ASDIRECTED PRN PRN Reason: Keep Vein Open Sodium Chloride (Saline Flush) 2.5 ml FLUSH ASDIRECTED PRN PRN Reason: Keep Vein Open Assessment/Plan Comment:: Intrauterine 36+3 patient have epigastric pain severe require extensive use of narcotic the patient is status post cholecystectomy in February 2016 early in this have repeated blood work liver enzymes and pancreatic exam essentially is normal the patient have a normal MRI at around 20 wks today the patient have ultrasound of the upper abdomen the liver and the pancreas which is essentially is normal there is some element of fluid collection in the area where the gallbladder used to be located the thinking by the radiologist that may represent gastritis or do denied this problem. The patient have a steady weight loss in the last 2 week today her biophysical profile is normal however her nausea and vomiting getting continue weight loss is starting to affect the I'm planning to repeat her section today to allow father workups by other disciplines and specialty for this epigastric pain. Also I'm planning to do consult with her surgeon who did her cholecystectomy for an input.
[2016-07-26] MEDS ORDERED: Sodium Chloride 0.9% 20 ML ONE (16:22)
[2016-07-26] MEDS ORDERED: ceFAZolin 1 GM Vial ONE (16:22)
[2016-07-26] MEDS ORDERED: Oxytocin 10 Units/1 ML SDV ONE (16:22)
[2016-07-26] MEDS ORDERED: fentaNYL 100 MCG/2 ML SDV ONE (16:22)
[2016-07-26] MEDS ORDERED: Ondansetron 4 MG/2 ML SDV ONE (16:22)
[2016-07-26] MEDS ORDERED: Metoclopramide 10 MG/2 ML SDV ONE (17:08)
[2016-07-26] MEDS ORDERED: ePHEDrine 50 MG/ML SDV ONE (17:18)
[2016-07-26] MEDS ORDERED: Octyl 2-Cyanoacrylate 1 Tube ONE (17:48)
[2016-07-26] MEDS ORDERED: Acetaminophen/oxyCODONE 325-5 MG Tab PO PRN (18:02)
[2016-07-26] MEDS ORDERED: Lanolin 100% Cream 7 GM Tube TOP PRN (18:02)
[2016-07-26] MEDS ORDERED: Ondansetron 4 MG/2 ML SDV IV PRN (18:02)
[2016-07-26] MEDS ORDERED: diphenhydrAMINE 50 MG/ML SDV IVPUSH PRN (18:02)
[2016-07-26] MEDS ORDERED: Bisacodyl 10 MG Supp RECTAL PRN (18:02)
--- NOTE | 2016-07-26 18:12 | PCM.OPNOTE ---
- General Post-Op/Procedure Note Date of Surgery/Procedure: 07/26/16 Pre Op Diagnosis: IUP 36 wks abdominal pain Post-Op Diagnosis: Same Anesthesia Technique: Spinal Primary Surgeon: Yogi Avila Implementation Project Manager: Latonya Reyes EBL in mLs: 700 Complications: None Condition: Good Free Text/Narrative:: Intake & Output 07/26/16 07/26/16 07/26/16 06:59 14:59 22:59 Intake Total 1000 Balance 1000
[2016-07-26] MEDS: Ketorolac 30 MG/ML SDV IVPUSH SCH (18:22)
--- NOTE | 2016-07-26 18:26 | PCM.POSTAN ---
POST ANESTHESIA ASSESSMENT - MENTAL STATUS Mental Status: alert, oriented - VITAL SIGNS Pulse Rate: 64 SaO2: 98 Resp Rate: 12 Blood Pressure: 136/83 - RESPIRATORY Respiratory Status: respiratory rate WNL, airway patent, O2 saturation stable, supplemental oxygen (NC at 2) - CARDIOVASCULAR CV Status: pulse rate WNL, blood pressure stable - GASTROINTESTINAL GI Status: no symptoms (earlier with N and V; was treated with reglan and zofran.....and delivery.) - PAIN Pain Score: 0 (spinal still active) - POST OP HYDRATION Hydration Status: adequate & stable Free Text/Narrative:: Improved condition from my meeting earlier this afternoon.
[2016-07-26] MEDS: Pantoprazole 40 MG Tab.CR PO SCH (20:05)
[2016-07-26] MEDS: Docusate Sodium 100 MG Cap PO SCH (21:28)
[2016-07-26] MEDS: fentaNYL/Normal Saline 300 MCG/30 ML PCA Vial IV SCH (21:34)
--- NOTE | 2016-07-26 23:49 | OR ---
SURGEON: Yogi Avila MD DATE OF PROCEDURE: POSTOPERATIVE DIAGNOSES: Intrauterine 36 +3 and abdominal pain probably related to gastritis and/or other reason of unknown etiology. POSTOP DIAGNOSIS: Intrauterine 36 +3 and abdominal pain probably related to gastritis and/or other reason of unknown etiology. OPERATION PERFORMED: Repeat low transverse section. AGRONOMY MANAGER: Latonya Reyes CNM. ANESTHESIA: Spinal. ANESTHESIOLOGISTS: Dr. Gurdeep Vu and Dr. Colon. ESTIMATED BLOOD LOSS: 700 mL. COMPLICATION: None. ENGINE HOSTLER: Dr. Stanford. FINDINGS: Male fetus. In vertex position, score is reported to be 3 and 9. The weight is not available at this time. INDICATION: She is 36 +3 weeks. She is followed in our clinic for this . She had multiple problems throughout the . She had acute cholecystitis, required cholecystectomy at 18 gestational age and that was complicated by mild pancreatitis and the patient has required admission to the hospital and significant amount of pain medications. Since then, the patient has been on nonnarcotic on daily basis. A repeated blood work was essentially normal. Her amylase, lipase, and her liver enzymes normal. She had an MRI of the abdomen which has ruled out any pancreatic or hepatic any problem; however, the patient has continued to require significant amount of narcotic for the pain and recently in the last visit, she has lost tremendous amount of weight. She lost a total of 14 pounds in the last 2 visits. The patient has a consultation with the general surgeon Dr. Hector who did her gallbladder surgery. It was felt that it is better to deliver the baby at this time at that is 36 weeks, so we can do further workups and try to diagnose the cause of her pain. PROCEDURES IN DETAIL: The patient was brought to the OR, properly identified, and after adequate level of general anesthesia, so under spinal anesthesia, the patient was prepped and draped in sterile fashion as usual. Low transverse Pfannenstiel skin incision was done. Socorro fascia and rectus fascia was opened in direction of the incision. The 2 recti muscles were and peritoneal cavity was entered. Bladder flap was raised in the usual manner pushing the bladder away from the lower uterine segment. Low transverse uterine incision was done, extended manually. Hand of the fetus was delivered, it was a vertex presentation and nurse resuscitated, and the call center agent, who was present at the time of the delivery. The placenta delivered spontaneous, complete, and intact and repair of the lower uterine segment was done with 2-0 Vicryl continuous interlocking in 2 layers. Reperitonealization done with 3-0 Vicryl continuous and the peritoneal cavity evacuated completely from all blood and blood clot and closed with 3-0 Vicryl continuous. The rectus fascia was closed with #1 PDS continuous Socorro's fascia with 3-0 Vicryl continuous and skin was closed with skin clips, Insorb, and Dermabond. Instrument and sponge count was correct. The patient tolerated the procedure well, went to recovery room in stable general condition. CUCA / GALO /[id number]
[2016-07-27] MEDS: Ketorolac 30 MG/ML SDV IVPUSH SCH ×4 (00:18→18:21)
[2016-07-27] MEDS: fentaNYL/Normal Saline 300 MCG/30 ML PCA Vial IV SCH ×2 (02:30→08:34)
--- NOTE | 2016-07-27 07:40 | PCM.PN ---
- General Info Date of Service: 07/27/16 Subjective Update: Patient states that her abdominal pain is greatly improved s/p . She has incisional pain but the epigastric pain and pressure she was experiencing yesterday is gone. Functional Status: Reports: pain controlled, tolerating diet - Review of Systems Gastrointestinal: Reports: No symptoms - Patient Data Vitals - most recent: Last Vital Signs Temp 37.2 C 07/27/16 05:54 Pulse 94 07/27/16 07:00 Resp 17 07/27/16 07:00 BP 141/80 H 07/27/16 05:54 Pulse Ox 95 07/27/16 07:00 Weight - most recent: 89.182 kg I&O - last 24 hours: Intake & Output 07/26/16 07/27/16 07/27/16 22:59 06:59 14:59 Intake Total 2900 Output Total 400 Balance 2900 -400 Lab Results last 24 hrs: Laboratory Results - last 24 hr 07/26/16 07/26/16 07/26/16 Range/Units 11:33 13:12 13:12 WBC 11.35 H (4.0-11.0) K/uL RBC 3.96 L (4.30-5.90) M/uL Hgb 11.8 L (12.0-16.0) g/dL Hct 36.1 (36.0-46.0) % MCV 91.2 (80.0-98.0) fL MCH 29.8 (27.0-32.0) pg MCHC 32.7 (31.0-37.0) g/dL RDW Std Deviation 48.3 (28.0-62.0) fl RDW Coeff of Anabell 15 (11.0-15.0) % Plt Count 293 (150-400) K/uL MPV 9.80 (7.40-12.00) fL Neut % (Auto) 78.3 (48.0-80.0) % Lymph % (Auto) 14.2 L (16.0-40.0) % [place] % (Auto) 7.1 (0.0-15.0) % Eos % (Auto) 0.4 (0.0-7.0) % Baso % (Auto) 0.0 (0.0-1.5) % Neut # (Auto) 8.9 H (1.4-5.7) K/uL Lymph # (Auto) 1.6 (0.6-2.4) K/uL [place] # (Auto) 0.8 (0.0-0.8) K/uL Eos # (Auto) 0.0 (0.0-0.7) K/uL Baso # (Auto) 0.0 (0.0-0.1) K/uL Nucleated RBC % 0.0 /100WBC Nucleated RBCs # 0 K/uL Sodium 139 (136-146) mmol/L Potassium 4.1 (3.5-5.1) mmol/L Chloride 106 (98-110) mmol/L Carbon Dioxide 19 L (21-31) mmol/L BUN 5 L (6.0-23.0) mg/dL Creatinine 0.6 (0.6-1.5) mg/dL Est Cr Clr Drug Dosing 109.49 mL/min Estimated GFR (MDRD) > 60.0 ml/min Glucose 78 (60-110) mg/dL Calcium 9.1 (8.8-10.8) mg/dL Total Bilirubin 0.4 (0.1-1.5) mg/dL Direct Bilirubin 0.2 (0.0-0.5) mg/dL Indirect Bilirubin 0.2 (0.0-1.0) mg/dL AST 10 (5-40) IU/L ALT 8 (8-54) IU/L Alkaline Phosphatase 127 (40-150) Total Protein 6.4 (6.0-8.0) g/dL Albumin 3.4 L (3.5-5.0) g/dL Globulin 3.0 (2.0-3.5) g/dL Albumin/Globulin Ratio 1.1 L (1.3-2.8) Amylase 75 (10-90) U/L Lipase 24 (7-80) U/L H. pylori IgG Antibody (NEG) Blood Type Antibody Screen 07/26/16 07/26/16 07/27/16 Range/Units 13:12 13:12 04:19 WBC (4.0-11.0) K/uL RBC (4.30-5.90) M/uL Hgb 9.4 L (12.0-16.0) g/dL Hct 28.5 L (36.0-46.0) % MCV (80.0-98.0) fL MCH (27.0-32.0) pg MCHC (31.0-37.0) g/dL RDW Std Deviation (28.0-62.0) fl RDW Coeff of Anabell (11.0-15.0) % Plt Count (150-400) K/uL MPV (7.40-12.00) fL Neut % (Auto) (48.0-80.0) % Lymph % (Auto) (16.0-40.0) % [place] % (Auto) (0.0-15.0) % Eos % (Auto) (0.0-7.0) % Baso % (Auto) (0.0-1.5) % Neut # (Auto) (1.4-5.7) K/uL Lymph # (Auto) (0.6-2.4) K/uL [place] # (Auto) (0.0-0.8) K/uL Eos # (Auto) (0.0-0.7) K/uL Baso # (Auto) (0.0-0.1) K/uL Nucleated RBC % /100WBC Nucleated RBCs # K/uL Sodium (136-146) mmol/L Potassium (3.5-5.1) mmol/L Chloride (98-110) mmol/L Carbon Dioxide (21-31) mmol/L BUN (6.0-23.0) mg/dL Creatinine (0.6-1.5) mg/dL Est Cr Clr Drug Dosing mL/min Estimated GFR (MDRD) ml/min Glucose (60-110) mg/dL Calcium (8.8-10.8) mg/dL Total Bilirubin (0.1-1.5) mg/dL Direct Bilirubin (0.0-0.5) mg/dL Indirect Bilirubin (0.0-1.0) mg/dL AST (5-40) IU/L ALT (8-54) IU/L Alkaline Phosphatase (40-150) Total Protein (6.0-8.0) g/dL Albumin (3.5-5.0) g/dL Globulin (2.0-3.5) g/dL Albumin/Globulin Ratio (1.3-2.8) Amylase (10-90) U/L Lipase (7-80) U/L H. pylori IgG Antibody NEGATIVE (NEG) Blood Type A POSITIVE Antibody Screen NEGATIVE Med Orders - Current: Current Medications Bisacodyl (Dulcolax) 10 mg RECTAL .ONCE PRN PRN Reason: Constipation Citric Acid/Sodium Citrate (Bicitra Solution) 30 ml PO .ONCE MAG[facility]Y Diphenhydramine HCl (Benadryl) 25 mg IVPUSH Q6H PRN PRN Reason: Itching or Nausea Docusate Sodium (Colace) 100 mg PO BID [facility] Last Admin: 07/26/16 21:28 Dose: 100 mg Emollient Ointment (Lansinoh Hpa) 0 gm TOP ASDIRECTED PRN PRN Reason: Sore Nipples Fentanyl Citrate (Fentanyl In Ns 300 Mcg/30 Ml Clinical Trial Specialist) 20 mcg IV ASDIRECTED [facility] PRN Reason: Protocol Stop: 07/27/16 18:00 Last Admin: 07/27/16 02:30 Dose: 300 mcg Lactated Ringer's (Ringers, Lactated) 1,000 mls @ 125 mls/hr IV ASDIRECTED [facility] Last Admin: 07/26/16 19:35 Dose: 125 mls/hr Lactated Ringer's (Ringers, Lactated) 1,000 mls @ 500 mls/hr IV .BOLUS [facility] Last Admin: 07/26/16 16:28 Dose: 500 mls/hr Lactated Ringer's (Ringers, Lactated) 1,000 mls @ 125 mls/hr IV ASDIRECTED [facility] Last Admin: 07/27/16 05:34 Dose: 125 mls/hr Ibuprofen (Motrin) 800 mg PO Q8H PRN PRN Reason: mild pain or fever Ketorolac Tromethamine (Toradol) 30 mg IVPUSH Q6H [facility] Stop: 07/27/16 18:16 Last Admin: 07/27/16 06:24 Dose: 30 mg Ondansetron HCl (Zofran) 4 mg IV Q4H PRN PRN Reason: Nausea/Vomiting Oxycodone/Acetaminophen (Percocet 325-5 Mg) 1 tab PO Q4H PRN PRN Reason: Pain (moderate 4-6) Oxycodone/Acetaminophen (Percocet 325-5 Mg) 2 tab PO Q4H PRN PRN Reason: Pain (moderate 4-6) Pantoprazole Sodium (Protonix) 40 mg PO DAILY [facility] Last Admin: 07/26/16 20:05 Dose: 40 mg Sodium Chloride (Saline Flush) 10 ml FLUSH ASDIRECTED PRN PRN Reason: Keep Vein Open Sodium Chloride (Saline Flush) 2.5 ml FLUSH ASDIRECTED PRN PRN Reason: Keep Vein Open Sodium Chloride (Saline Flush) 10 ml FLUSH ASDIRECTED PRN PRN Reason: Keep Vein Open Sodium Chloride (Saline Flush) 2.5 ml FLUSH ASDIRECTED PRN PRN Reason: Keep Vein Open Discontinued Medications Cefazolin Sodium (Ancef) Confirm Administered Dose 2 gm .ROUTE .STK-MED ONE Stop: 07/26/16 16:23 Ephedrine Sulfate (Ephedrine Sulfate) Confirm Administered Dose 50 mg .ROUTE .STK-MED ONE Stop: 07/26/16 17:19 Fentanyl (Sublimaze) Confirm Administered Dose 100 mcg .ROUTE .STK-MED ONE Stop: 07/26/16 16:23 Cefazolin Sodium/Dextrose 2 gm (/ Premix) 50 mls @ 100 mls/hr IV ONETIME ONE Stop: 07/26/16 13:42 Sodium Chloride (Normal Saline) Confirm Administered Dose 20 mls @ as directed .ROUTE .STK-MED ONE Stop: 07/26/16 16:23 Metoclopramide HCl (Reglan) Confirm Administered Dose 10 mg .ROUTE .STK-MED ONE Stop: 07/26/16 17:09 Morphine Sulfate (Morphine) 4 mg IVPUSH ONETIME ONE Stop: 07/26/16 13:46 Last Admin: 07/26/16 14:11 Dose: 4 mg Octyl Cyanoacrylate (Dermabond Advance) Confirm Administered Dose 1 applic .ROUTE .STK-MED ONE Stop: 07/26/16 17:49 Ondansetron HCl (Zofran) 4 mg IVPUSH ONETIME ONE Stop: 07/26/16 13:46 Last Admin: 07/26/16 14:11 Dose: 4 mg Ondansetron HCl (Zofran) Confirm Administered Dose 4 mg .ROUTE .STK-MED ONE Stop: 07/26/16 16:23 Oxytocin (Pitocin) Confirm Administered Dose 20 unit .ROUTE .STK-MED ONE Stop: 07/26/16 16:23 - Exam General: alert, oriented Lungs: Normal respiratory effort Abdomen: soft, no tenderness - Problem List & Annotations (1) Epigastric abdominal pain SNOMED Code(s): 01010021 Code(s): R10.13 - EPIGASTRIC PAIN Status: Acute Priority: High Current Visit: No - Problem List Review Problem List Initiated/Reviewed/Updated: Yes - My Orders Last 24 Hours: My Active Orders 07/26/16 19:30 Pantoprazole [ProTONIX] 40 mg PO DAILY - Plan Plan:: Patient is doing extremely well s/p . Would suggest she continue a daily PPI for now and start a bowel regiment that includes daily miralax and docusate as long as she is on narcotic pain medications. Will see patient in 2 weeks in clinic. Will sign off today. Please call if there are any questions or concerns.
[2016-07-27] MEDS: Pantoprazole 40 MG Tab.CR PO SCH (08:35)
[2016-07-27] MEDS: Docusate Sodium 100 MG Cap PO SCH ×2 (08:35→21:54)
--- NOTE | 2016-07-27 08:55 | PCM48HPAN ---
Post Anesthesia Note - EVALUATION WITHIN 48HRS OF ANESTHETIC Vital Signs in Normal Range: Yes Patient Participated in Evaluation: Yes Respiratory Function Stable: Yes Airway Patent: Yes Cardiovascular Function Stable: Yes Hydration Status Stable: Yes Pain Control Satisfactory: Yes Nausea and Vomiting Control Satisfactory: Yes Mental Status Recovered: Yes
--- NOTE | 2016-07-27 09:05 | PCM.PNPP ---
- General Info Date of Service: 07/27/16 Functional Status: Reports: pain controlled - Review of Systems General: Reports: No Symptoms HEENT: Reports: no symptoms Pulmonary: Reports: no symptoms Cardiovascular: Reports: No Symptoms Gastrointestinal: Reports: No symptoms Genitourinary: Reports: no symptoms Musculoskeletal: Reports: no symptoms Skin: Reports: no symptoms Neurological: Reports: No Symptoms Psychiatric: Reports: no symptoms - General Info Date of Service: 07/27/16 - Patient Data Vital Signs - most recent: Last Vital Signs Temp 35.8 C 07/27/16 08:55 Pulse 94 07/27/16 08:55 Resp 16 07/27/16 08:55 BP 135/78 07/27/16 08:55 Pulse Ox 99 07/27/16 08:55 Weight - most recent: 89.182 kg I&O - last 24 hours: Intake & Output 07/26/16 07/27/16 07/27/16 22:59 06:59 14:59 Intake Total 2900 Output Total 400 Balance 2900 -400 Lab Results - last 24 hrs: Laboratory Results - last 24 hr 07/26/16 07/26/16 07/26/16 Range/Units 11:33 13:12 13:12 WBC 11.35 H (4.0-11.0) K/uL RBC 3.96 L (4.30-5.90) M/uL Hgb 11.8 L (12.0-16.0) g/dL Hct 36.1 (36.0-46.0) % MCV 91.2 (80.0-98.0) fL MCH 29.8 (27.0-32.0) pg MCHC 32.7 (31.0-37.0) g/dL RDW Std Deviation 48.3 (28.0-62.0) fl RDW Coeff of Anabell 15 (11.0-15.0) % Plt Count 293 (150-400) K/uL MPV 9.80 (7.40-12.00) fL Neut % (Auto) 78.3 (48.0-80.0) % Lymph % (Auto) 14.2 L (16.0-40.0) % [place] % (Auto) 7.1 (0.0-15.0) % Eos % (Auto) 0.4 (0.0-7.0) % Baso % (Auto) 0.0 (0.0-1.5) % Neut # (Auto) 8.9 H (1.4-5.7) K/uL Lymph # (Auto) 1.6 (0.6-2.4) K/uL [place] # (Auto) 0.8 (0.0-0.8) K/uL Eos # (Auto) 0.0 (0.0-0.7) K/uL Baso # (Auto) 0.0 (0.0-0.1) K/uL Nucleated RBC % 0.0 /100WBC Nucleated RBCs # 0 K/uL Sodium 139 (136-146) mmol/L Potassium 4.1 (3.5-5.1) mmol/L Chloride 106 (98-110) mmol/L Carbon Dioxide 19 L (21-31) mmol/L BUN 5 L (6.0-23.0) mg/dL Creatinine 0.6 (0.6-1.5) mg/dL Est Cr Clr Drug Dosing 109.49 mL/min Estimated GFR (MDRD) > 60.0 ml/min Glucose 78 (60-110) mg/dL Calcium 9.1 (8.8-10.8) mg/dL Total Bilirubin 0.4 (0.1-1.5) mg/dL Direct Bilirubin 0.2 (0.0-0.5) mg/dL Indirect Bilirubin 0.2 (0.0-1.0) mg/dL AST 10 (5-40) IU/L ALT 8 (8-54) IU/L Alkaline Phosphatase 127 (40-150) Total Protein 6.4 (6.0-8.0) g/dL Albumin 3.4 L (3.5-5.0) g/dL Globulin 3.0 (2.0-3.5) g/dL Albumin/Globulin Ratio 1.1 L (1.3-2.8) Amylase 75 (10-90) U/L Lipase 24 (7-80) U/L H. pylori IgG Antibody (NEG) Blood Type Antibody Screen 07/26/16 07/26/16 07/27/16 Range/Units 13:12 13:12 04:19 WBC (4.0-11.0) K/uL RBC (4.30-5.90) M/uL Hgb 9.4 L (12.0-16.0) g/dL Hct 28.5 L (36.0-46.0) % MCV (80.0-98.0) fL MCH (27.0-32.0) pg MCHC (31.0-37.0) g/dL RDW Std Deviation (28.0-62.0) fl RDW Coeff of Anabell (11.0-15.0) % Plt Count (150-400) K/uL MPV (7.40-12.00) fL Neut % (Auto) (48.0-80.0) % Lymph % (Auto) (16.0-40.0) % [place] % (Auto) (0.0-15.0) % Eos % (Auto) (0.0-7.0) % Baso % (Auto) (0.0-1.5) % Neut # (Auto) (1.4-5.7) K/uL Lymph # (Auto) (0.6-2.4) K/uL [place] # (Auto) (0.0-0.8) K/uL Eos # (Auto) (0.0-0.7) K/uL Baso # (Auto) (0.0-0.1) K/uL Nucleated RBC % /100WBC Nucleated RBCs # K/uL Sodium (136-146) mmol/L Potassium (3.5-5.1) mmol/L Chloride (98-110) mmol/L Carbon Dioxide (21-31) mmol/L BUN (6.0-23.0) mg/dL Creatinine (0.6-1.5) mg/dL Est Cr Clr Drug Dosing mL/min Estimated GFR (MDRD) ml/min Glucose (60-110) mg/dL Calcium (8.8-10.8) mg/dL Total Bilirubin (0.1-1.5) mg/dL Direct Bilirubin (0.0-0.5) mg/dL Indirect Bilirubin (0.0-1.0) mg/dL AST (5-40) IU/L ALT (8-54) IU/L Alkaline Phosphatase (40-150) Total Protein (6.0-8.0) g/dL Albumin (3.5-5.0) g/dL Globulin (2.0-3.5) g/dL Albumin/Globulin Ratio (1.3-2.8) Amylase (10-90) U/L Lipase (7-80) U/L H. pylori IgG Antibody NEGATIVE (NEG) Blood Type A POSITIVE Antibody Screen NEGATIVE Med Orders - Current: Current Medications Bisacodyl (Dulcolax) 10 mg RECTAL .ONCE PRN PRN Reason: Constipation Citric Acid/Sodium Citrate (Bicitra Solution) 30 ml PO .ONCE [facility] Diphenhydramine HCl (Benadryl) 25 mg IVPUSH Q6H PRN PRN Reason: Itching or Nausea Docusate Sodium (Colace) 100 mg PO BID [facility] Last Admin: 07/27/16 08:35 Dose: 100 mg Emollient Ointment (Lansinoh Hpa) 0 gm TOP ASDIRECTED PRN PRN Reason: Sore Nipples Fentanyl Citrate (Fentanyl In Ns 300 Mcg/30 Ml Photographic Laboratory Technician) 20 mcg IV ASDIRECTED [facility] PRN Reason: Protocol Stop: 07/27/16 18:00 Last Admin: 07/27/16 08:34 Dose: 300 mcg Lactated Ringer's (Ringers, Lactated) 1,000 mls @ 125 mls/hr IV ASDIRECTED [facility] Last Admin: 07/26/16 19:35 Dose: 125 mls/hr Lactated Ringer's (Ringers, Lactated) 1,000 mls @ 500 mls/hr IV .BOLUS [facility] Last Admin: 07/26/16 16:28 Dose: 500 mls/hr Lactated Ringer's (Ringers, Lactated) 1,000 mls @ 125 mls/hr IV ASDIRECTED [facility] Last Admin: 07/27/16 05:34 Dose: 125 mls/hr Ibuprofen (Motrin) 800 mg PO Q8H PRN PRN Reason: mild pain or fever Ketorolac Tromethamine (Toradol) 30 mg IVPUSH Q6H [facility] Stop: 07/27/16 18:16 Last Admin: 07/27/16 06:24 Dose: 30 mg Ondansetron HCl (Zofran) 4 mg IV Q4H PRN PRN Reason: Nausea/Vomiting Oxycodone/Acetaminophen (Percocet 325-5 Mg) 1 tab PO Q4H PRN PRN Reason: Pain (moderate 4-6) Oxycodone/Acetaminophen (Percocet 325-5 Mg) 2 tab PO Q4H PRN PRN Reason: Pain (moderate 4-6) Pantoprazole Sodium (Protonix) 40 mg PO DAILY [facility] Last Admin: 07/27/16 08:35 Dose: 40 mg Sodium Chloride (Saline Flush) 10 ml FLUSH ASDIRECTED PRN PRN Reason: Keep Vein Open Sodium Chloride (Saline Flush) 2.5 ml FLUSH ASDIRECTED PRN PRN Reason: Keep Vein Open Sodium Chloride (Saline Flush) 10 ml FLUSH ASDIRECTED PRN PRN Reason: Keep Vein Open Sodium Chloride (Saline Flush) 2.5 ml FLUSH ASDIRECTED PRN PRN Reason: Keep Vein Open Discontinued Medications Cefazolin Sodium (Ancef) Confirm Administered Dose 2 gm .ROUTE .STK-MED ONE Stop: 07/26/16 16:23 Ephedrine Sulfate (Ephedrine Sulfate) Confirm Administered Dose 50 mg .ROUTE .STK-MED ONE Stop: 07/26/16 17:19 Fentanyl (Sublimaze) Confirm Administered Dose 100 mcg .ROUTE .STK-MED ONE Stop: 07/26/16 16:23 Cefazolin Sodium/Dextrose 2 gm (/ Premix) 50 mls @ 100 mls/hr IV ONETIME ONE Stop: 07/26/16 13:42 Sodium Chloride (Normal Saline) Confirm Administered Dose 20 mls @ as directed .ROUTE .STK-MED ONE Stop: 07/26/16 16:23 Metoclopramide HCl (Reglan) Confirm Administered Dose 10 mg .ROUTE .STK-MED ONE Stop: 07/26/16 17:09 Morphine Sulfate (Morphine) 4 mg IVPUSH ONETIME ONE Stop: 07/26/16 13:46 Last Admin: 07/26/16 14:11 Dose: 4 mg Octyl Cyanoacrylate (Dermabond Advance) Confirm Administered Dose 1 applic .ROUTE .STK-MED ONE Stop: 07/26/16 17:49 Ondansetron HCl (Zofran) 4 mg IVPUSH ONETIME ONE Stop: 07/26/16 13:46 Last Admin: 07/26/16 14:11 Dose: 4 mg Ondansetron HCl (Zofran) Confirm Administered Dose 4 mg .ROUTE .STK-MED ONE Stop: 07/26/16 16:23 Oxytocin (Pitocin) Confirm Administered Dose 20 unit .ROUTE .STK-MED ONE Stop: 07/26/16 16:23 - Infant Interaction Infant Disposition, : [place] in Room with Family Interaction: Holding Infant Feeding: Attempted ; Nursed Fair/Poor Support Person: - Recovery Exam Fundal Tone: Firm Fundal Level: At Umbilicus Fundal Placement: Midline Lochia Amount: Small Lochia Color: Rubra/Red Perineum Description: Intact, Minimal Bruising/Swelling Episiotomy/Laceration: None Bladder Status: Indwelling Catheter in Place Urinary Elimination: Indwelling Catheter - Exam General: alert, oriented HEENT: Pupils equal Neck: supple Lungs: Clear to auscultation, Normal respiratory effort Cardiovascular: Regular Rate, Regular Rhythm Abdomen: bowel sounds present, soft, no tenderness, no distension Extremities: no edema Skin: warm, dry, intact Wound/Incisions: healing well Neurological: no new focal deficit Psy/Mental Status: alert, normal affect, normal mood - Problem List Review Problem List Initiated/Reviewed/Updated: Yes - My Orders Last 24 Hours: My Active Orders 07/26/16 11:03 Consult to Physician [CONS] Urgent 07/26/16 11:13 Notify Provider Consults [RC] ASDIRECTED 07/26/16 13:13 Peripheral IV Care [RC] PRN Up ad Maryam [RC] ASDIRECTED Vital Signs [RC] PER UNIT ROUTINE Sodium Chloride 0.9% [Saline Flush] 10 ml FLUSH ASDIRECTED PRN Sodium Chloride 0.9% [Saline Flush] 2.5 ml FLUSH ASDIRECTED PRN Peripheral IV Insertion Adult [OM.PC] Routine Schedule Procedure [COMM] Per Unit Routine Resuscitation Status Routine 07/26/16 13:15 Citric Acid/Sodium Citrate [Bicitra Solution] 30 ml PO .ONCE Lactated Ringers [Ringers, Lactated] 1,000 ml IV .BOLUS 07/26/16 13:16 Notify Provider Vital Signs [RC] PRN 07/26/16 18:00 fentaNYL/Normal Saline [fentaNYL in NS 300 MCG/30 ML FOREPART RASPER] 20 mcg IV ASDIRECTED 07/26/16 18:02 Patient Status [ADT] Routine Ambulate [RC] PER UNIT ROUTINE Communication Order [RC] PER UNIT ROUTINE Communication Order [RC] PER UNIT ROUTINE May Shower [RC] ASDIRECTED RT Incentive Spirometry [RC] Q2HWA Acetaminophen/oxyCODONE [Percocet 325-5 MG] 1 tab PO Q4H PRN Acetaminophen/oxyCODONE [Percocet 325-5 MG] 2 tab PO Q4H PRN Bisacodyl [Dulcolax] 10 mg RECTAL .ONCE PRN Lanolin [Lansinoh HPA] See Dose Instructions TOP ASDIRECTED PRN Ondansetron [Zofran] 4 mg IV Q4H PRN diphenhydrAMINE [Benadryl] 25 mg IVPUSH Q6H PRN Assess Lochia [WOMSER] Per Unit Routine Assess Uterine Involution [WOMSER] Per Unit Routine Breast Pump [WOMSER] Per Unit Routine Peripheral IV Discontinue [OM.PC] Routine Sequential Compression Device [OM.PC] Per Unit Routine 07/26/16 18:03 Antiembolic Devices [RC] PER UNIT ROUTINE 07/26/16 18:15 Ketorolac [Toradol] 30 mg IVPUSH Q6H Lactated Ringers [Ringers, Lactated] 1,000 ml IV ASDIRECTED 07/26/16 21:00 Docusate Sodium [Colace] 100 mg PO BID 07/27/16 Breakfast Regular Diet [DIET] 07/28/16 00:00 Ibuprofen [Motrin] 800 mg PO Q8H PRN - Plan Plan:: Patient is doing extremely well s/p . Would suggest she continue a daily PPI for now and start a bowel regiment that includes daily miralax and docusate as long as she is on narcotic pain medications. Will see patient in 2 weeks in clinic. Will sign off today. Please call if there are any questions or concerns. 07/27/16 doing well her epigastric pain improving
[2016-07-27] MEDS: Acetaminophen/oxyCODONE 325-5 MG Tab PO PRN ×2 (15:03→20:40)
[2016-07-28] MEDS: Acetaminophen/oxyCODONE 325-5 MG Tab PO PRN ×2 (01:16→05:57)
[2016-07-28] MEDS: Ibuprofen 800 MG Tab PO PRN ×2 (04:30→14:30)
[2016-07-28] MEDS: Docusate Sodium 100 MG Cap PO SCH (09:09)
[2016-07-28] MEDS: Pantoprazole 40 MG Tab.CR PO SCH (09:09)
[2016-07-28] MEDS ORDERED: Ondansetron 4 MG/2 ML SDV IM ONE ×2 (09:54→14:54)
--- NOTE | 2016-07-28 10:35 | PCM.PNPP ---
- General Info Date of Service: 07/28/16 Functional Status: Reports: pain controlled - Review of Systems General: Reports: No Symptoms HEENT: Reports: no symptoms Pulmonary: Reports: no symptoms Cardiovascular: Reports: No Symptoms Gastrointestinal: Reports: No symptoms Genitourinary: Reports: no symptoms Musculoskeletal: Reports: no symptoms Skin: Reports: no symptoms Neurological: Reports: No Symptoms Psychiatric: Reports: no symptoms - General Info Date of Service: 07/28/16 - Patient Data Vital Signs - most recent: Last Vital Signs Temp 36.6 C 07/28/16 08:36 Pulse 89 07/28/16 08:36 Resp 18 07/28/16 08:36 BP 157/85 H 07/28/16 08:36 Pulse Ox 96 07/28/16 08:36 Weight - most recent: 89.182 kg Med Orders - Current: Current Medications Bisacodyl (Dulcolax) 10 mg RECTAL .ONCE PRN PRN Reason: Constipation Citric Acid/Sodium Citrate (Bicitra Solution) 30 ml PO .ONCE MAGALY Diphenhydramine HCl (Benadryl) 25 mg IVPUSH Q6H PRN PRN Reason: Itching or Nausea Docusate Sodium (Colace) 100 mg PO BID [facility] Last Admin: 07/28/16 09:09 Dose: 100 mg Emollient Ointment (Lansinoh Hpa) 0 gm TOP ASDIRECTED PRN PRN Reason: Sore Nipples Lactated Ringer's (Ringers, Lactated) 1,000 mls @ 125 mls/hr IV ASDIRECTED [facility] Last Admin: 07/26/16 19:35 Dose: 125 mls/hr Lactated Ringer's (Ringers, Lactated) 1,000 mls @ 500 mls/hr IV .BOLUS [facility] Last Admin: 07/26/16 16:28 Dose: 500 mls/hr Lactated Ringer's (Ringers, Lactated) 1,000 mls @ 125 mls/hr IV ASDIRECTED [facility] Last Admin: 07/27/16 05:34 Dose: 125 mls/hr Ibuprofen (Motrin) 800 mg PO Q8H PRN PRN Reason: mild pain or fever Last Admin: 07/28/16 04:30 Dose: 800 mg Ondansetron HCl (Zofran) 4 mg IV Q4H PRN PRN Reason: Nausea/Vomiting Oxycodone/Acetaminophen (Percocet 325-5 Mg) 1 tab PO Q4H PRN PRN Reason: Pain (moderate 4-6) Oxycodone/Acetaminophen (Percocet 325-5 Mg) 2 tab PO Q4H PRN PRN Reason: Pain (moderate 4-6) Last Admin: 07/28/16 05:57 Dose: 2 tab Pantoprazole Sodium (Protonix) 40 mg PO DAILY [facility] Last Admin: 07/28/16 09:09 Dose: 40 mg Sodium Chloride (Saline Flush) 10 ml FLUSH ASDIRECTED PRN PRN Reason: Keep Vein Open Sodium Chloride (Saline Flush) 2.5 ml FLUSH ASDIRECTED PRN PRN Reason: Keep Vein Open Sodium Chloride (Saline Flush) 10 ml FLUSH ASDIRECTED PRN PRN Reason: Keep Vein Open Sodium Chloride (Saline Flush) 2.5 ml FLUSH ASDIRECTED PRN PRN Reason: Keep Vein Open Discontinued Medications Cefazolin Sodium (Ancef) Confirm Administered Dose 2 gm .ROUTE .STK-MED ONE Stop: 07/26/16 16:23 Ephedrine Sulfate (Ephedrine Sulfate) Confirm Administered Dose 50 mg .ROUTE .STK-MED ONE Stop: 07/26/16 17:19 Fentanyl (Sublimaze) Confirm Administered Dose 100 mcg .ROUTE .STK-MED ONE Stop: 07/26/16 16:23 Fentanyl Citrate (Fentanyl In Ns 300 Mcg/30 Ml [place]) 20 mcg IV ASDIRECTED [facility] PRN Reason: Protocol Stop: 07/27/16 18:00 Last Admin: 07/27/16 08:34 Dose: 300 mcg Cefazolin Sodium/Dextrose 2 gm (/ Premix) 50 mls @ 100 mls/hr IV ONETIME ONE Stop: 07/26/16 13:42 Sodium Chloride (Normal Saline) Confirm Administered Dose 20 mls @ as directed .ROUTE .STK-MED ONE Stop: 07/26/16 16:23 Ketorolac Tromethamine (Toradol) 30 mg IVPUSH Q6H [facility] Stop: 07/27/16 18:16 Last Admin: 07/27/16 18:21 Dose: 30 mg Metoclopramide HCl (Reglan) Confirm Administered Dose 10 mg .ROUTE .STK-MED ONE Stop: 07/26/16 17:09 Morphine Sulfate (Morphine) 4 mg IVPUSH ONETIME ONE Stop: 07/26/16 13:46 Last Admin: 07/26/16 14:11 Dose: 4 mg Octyl Cyanoacrylate (Dermabond Advance) Confirm Administered Dose 1 applic .ROUTE .STK-MED ONE Stop: 07/26/16 17:49 Ondansetron HCl (Zofran) 4 mg IVPUSH ONETIME ONE Stop: 07/26/16 13:46 Last Admin: 07/26/16 14:11 Dose: 4 mg Ondansetron HCl (Zofran) Confirm Administered Dose 4 mg .ROUTE .STK-MED ONE Stop: 07/26/16 16:23 Ondansetron HCl (Zofran) 4 mg IM ONETIME ONE Stop: 07/28/16 09:55 Last Admin: 07/28/16 10:11 Dose: 4 mg Oxytocin (Pitocin) Confirm Administered Dose 20 unit .ROUTE .STK-MED ONE Stop: 07/26/16 16:23 - Interaction Disposition, : [place] in Room with Family Interaction: Holding Feeding: Attempted ; Nursed Fair/Poor Support Person: - Recovery Exam Fundal Tone: Firm Fundal Level: 1 Fingerbreadths Below Umbilicus Fundal Placement: Midline Lochia Amount: Scant Lochia Color: Rubra/Red Perineum Description: Intact, Minimal Bruising/Swelling Episiotomy/Laceration: None Bladder Status: Voiding Urinary Elimination: Indwelling Catheter - Exam General: alert, oriented HEENT: Pupils equal Neck: supple Lungs: Clear to auscultation, Normal respiratory effort Cardiovascular: Regular Rate, Regular Rhythm Abdomen: bowel sounds present, soft, no tenderness, no distension Extremities: no edema Skin: warm, dry, intact Wound/Incisions: healing well Neurological: no new focal deficit Psy/Mental Status: alert, normal affect, normal mood - Problem List Review Problem List Initiated/Reviewed/Updated: Yes - My Orders Last 24 Hours: My Active Orders 07/28/16 00:00 Ibuprofen [Motrin] 800 mg PO Q8H PRN - Plan Plan:: Patient is doing extremely well s/p . Would suggest she continue a daily PPI for now and start a bowel regiment that includes daily miralax and docusate as long as she is on narcotic pain medications. Will see patient in 2 weeks in clinic. Will sign off today. Please call if there are any questions or concerns. 07/27/16 doing well her epigastric pain improving will send home today
--- NOTE | 2016-07-28 10:36 | PCM.DCSUM1 ---
Discharge Summary - Discharge Data Discharge Date: 07/28/16 Discharge Disposition: Home, Self-Care 01 Condition: Good - Patient Summary/Data Operative Procedure(s) Performed: Laparoscopic cholecystectomy Consults: Consultations 07/26/16 11:03 Consult to Physician [CONS] Urgent - Patient Instructions Diet: Usual Diet as Tolerated Activity: As Tolerated Driving: Do Not Drive Showering/Bathing: May Shower Wound/Incision Care: Keep Operative Site/Wound Site Clean and Dry Notify Provider of: Fever, Increased Pain, Swelling and Redness, Nausea and/or Vomiting - Discharge Plan Home Medications: Home Meds Vit W-Ca,Fe,FA(<1 mg) [ Vitamins] 1 tab PO DAILY 02/14/16 [ History] Ondansetron HCl [Zofran] 4 mg PO Q6H PRN #30 tablet 04/13/16 [Rx] Omeprazole 40 mg PO DAILY 05/11/16 [History] oxyCODONE HCl/Acetaminophen [Percocet 7.5-325 mg Tablet] 1 each PO Q4H PRN #30 tablet 05/17/16 [Rx] Referrals: [facility] [Outside] Yogi Avila MD [Physician] - (1 week- August 09 @ 9:30am w/ Dr. Avila 6 week- September 11 @ 9:30am w/ Dr. Avila) - Patient Data Vitals - Most Recent: Last Vital Signs Temp 36.6 C 07/28/16 08:36 Pulse 89 07/28/16 08:36 Resp 18 07/28/16 08:36 BP 157/85 H 07/28/16 08:36 Pulse Ox 96 07/28/16 08:36 Weight - Most Recent: 89.182 kg Med Orders - Current: Current Medications Bisacodyl (Dulcolax) 10 mg RECTAL .ONCE PRN PRN Reason: Constipation Citric Acid/Sodium Citrate (Bicitra Solution) 30 ml PO .ONCE MAGALY Diphenhydramine HCl (Benadryl) 25 mg IVPUSH Q6H PRN PRN Reason: Itching or Nausea Docusate Sodium (Colace) 100 mg PO BID [facility] Last Admin: 07/28/16 09:09 Dose: 100 mg Emollient Ointment (Lansinoh Hpa) 0 gm TOP ASDIRECTED PRN PRN Reason: Sore Nipples Lactated Ringer's (Ringers, Lactated) 1,000 mls @ 125 mls/hr IV ASDIRECTED [facility] Last Admin: 07/26/16 19:35 Dose: 125 mls/hr Lactated Ringer's (Ringers, Lactated) 1,000 mls @ 500 mls/hr IV .BOLUS [facility] Last Admin: 07/26/16 16:28 Dose: 500 mls/hr Lactated Ringer's (Ringers, Lactated) 1,000 mls @ 125 mls/hr IV ASDIRECTED [facility] Last Admin: 07/27/16 05:34 Dose: 125 mls/hr Ibuprofen (Motrin) 800 mg PO Q8H PRN PRN Reason: mild pain or fever Last Admin: 07/28/16 04:30 Dose: 800 mg Ondansetron HCl (Zofran) 4 mg IV Q4H PRN PRN Reason: Nausea/Vomiting Oxycodone/Acetaminophen (Percocet 325-5 Mg) 1 tab PO Q4H PRN PRN Reason: Pain (moderate 4-6) Oxycodone/Acetaminophen (Percocet 325-5 Mg) 2 tab PO Q4H PRN PRN Reason: Pain (moderate 4-6) Last Admin: 07/28/16 05:57 Dose: 2 tab Pantoprazole Sodium (Protonix) 40 mg PO DAILY [facility] Last Admin: 07/28/16 09:09 Dose: 40 mg Sodium Chloride (Saline Flush) 10 ml FLUSH ASDIRECTED PRN PRN Reason: Keep Vein Open Sodium Chloride (Saline Flush) 2.5 ml FLUSH ASDIRECTED PRN PRN Reason: Keep Vein Open Sodium Chloride (Saline Flush) 10 ml FLUSH ASDIRECTED PRN PRN Reason: Keep Vein Open Sodium Chloride (Saline Flush) 2.5 ml FLUSH ASDIRECTED PRN PRN Reason: Keep Vein Open Discontinued Medications Cefazolin Sodium (Ancef) Confirm Administered Dose 2 gm .ROUTE .STK-MED ONE Stop: 07/26/16 16:23 Ephedrine Sulfate (Ephedrine Sulfate) Confirm Administered Dose 50 mg .ROUTE .STK-MED ONE Stop: 07/26/16 17:19 Fentanyl (Sublimaze) Confirm Administered Dose 100 mcg .ROUTE .STK-MED ONE Stop: 07/26/16 16:23 Fentanyl Citrate (Fentanyl In Ns 300 Mcg/30 Ml Cell Support [employer]) 20 mcg IV ASDIRECTED [facility] PRN Reason: Protocol Stop: 07/27/16 18:00 Last Admin: 07/27/16 08:34 Dose: 300 mcg Cefazolin Sodium/Dextrose 2 gm (/ Premix) 50 mls @ 100 mls/hr IV ONETIME ONE Stop: 07/26/16 13:42 Sodium Chloride (Normal Saline) Confirm Administered Dose 20 mls @ as directed .ROUTE .STK-MED ONE Stop: 07/26/16 16:23 Ketorolac Tromethamine (Toradol) 30 mg IVPUSH Q6H [facility] Stop: 07/27/16 18:16 Last Admin: 07/27/16 18:21 Dose: 30 mg Metoclopramide HCl (Reglan) Confirm Administered Dose 10 mg .ROUTE .STK-MED ONE Stop: 07/26/16 17:09 Morphine Sulfate (Morphine) 4 mg IVPUSH ONETIME ONE Stop: 07/26/16 13:46 Last Admin: 07/26/16 14:11 Dose: 4 mg Octyl Cyanoacrylate (Dermabond Advance) Confirm Administered Dose 1 applic .ROUTE .STK-MED ONE Stop: 07/26/16 17:49 Ondansetron HCl (Zofran) 4 mg IVPUSH ONETIME ONE Stop: 07/26/16 13:46 Last Admin: 07/26/16 14:11 Dose: 4 mg Ondansetron HCl (Zofran) Confirm Administered Dose 4 mg .ROUTE .STK-MED ONE Stop: 07/26/16 16:23 Ondansetron HCl (Zofran) 4 mg IM ONETIME ONE Stop: 07/28/16 09:55 Last Admin: 07/28/16 10:11 Dose: 4 mg Oxytocin (Pitocin) Confirm Administered Dose 20 unit .ROUTE .STK-MED ONE Stop: 07/26/16 16:23 *Q Meaningful Use (DIS) - VTE *Q VTE Criteria *Q: - Stroke *Q Stroke Criteria *Q: - AMI *Q AMI Criteria *Q:
[2016-07-28 19:33] VITALS: BP 139/81
== END 2016-07-28 18:15 | disposition home or self-care (01) | DRG 540 ==
LOC: MW.OBCHECK 10:51 → MW.OB 10:58 → MW.OBCHECK 13:20 → OBSVTOIN 17:36 → MW.OB 20:13
PROVIDERS: ADMIT Obstetrics & Gynecology; ATTEND Obstetrics & Gynecology
PROC: 10D00Z1 Extraction of Products of Conception, Low, Open Approach (ICD-10-PCS; principal; 2016-07-26)
DX: O75.89 Other specified complications of labor and delivery (principal); Z3A.36 36 weeks gestation of pregnancy; Z37.0 Single live birth; R10.13 Epigastric pain; K29.70 Gastritis, unspecified, without bleeding
CPT/HCPCS: 01961; 36415; 59025; 76700; 76700-26; 76819; 76819-26; 80048; 80076; 82150; 83690; 85014; 85018; 85025; 86677; 86850; 86900; 86901; A9270-GY; J0690; J1885; J2270; J2405; J2590; J2765; J3010; J7120

== ENCOUNTER 2017-01-17 07:16 | Emergency (ER) | payer BC ==
[2017-01-17] MEDS ORDERED: Ondansetron 4 MG/2 ML SDV IVPUSH ONE (07:36)
[2017-01-17] MEDS ORDERED: LORazepam 2 MG/ML MDV IVPUSH ONE ×2 (07:37→08:48)
[2017-01-17] MEDS ORDERED: Sodium Chloride 0.9% 1,000 ML IV ONE (07:37)
--- NOTE | 2017-01-17 07:43 | EDM.PDOC ---
ED HPI GENERAL MEDICAL PROBLEM - General Chief Complaint: General Stated Complaint: VOMITING, SHAKING, FLU LIKE SYMPTOMS Time Seen by Provider: 01/17/17 07:38 Source of Information: Reports: Patient History Limitations: Reports: No Limitations - History of Present Illness INITIAL COMMENTS - FREE TEXT/NARRATIVE: HISTORY AND PHYSICAL: History of present illness: [41-year-old female with a history of depression and anxiety on Zoloft just had her dose increased took the new dose this morning and now has nausea and she is hyperventilating on presentation to the emergency department. Patient concerned she is having a reaction. No hives. No voice changes or stridor. No wheezing. No rash or itching Review of systems: As per history of present illness and below otherwise all systems reviewed and negative. Past medical history: As per history of present illness and as reviewed below otherwise noncontributory. Surgical history: As per history of present illness and as reviewed below otherwise noncontributory. Social history: No reported history of drug or alcohol abuse. Family history: As per history of present illness and as reviewed below otherwise noncontributory. Physical exam: 41-year-old female moaning and writhing all over the bed hyperventilating with carpal spasm bilaterally. Patient is alert and nonfocal otherwise she does have nausea and is retching clear lungs no wheezing no rash no hives benign abdomen nonfocal neuro HEENT: Atraumatic, normocephalic, pupils reactive, negative for conjunctival pallor or scleral icterus, mucous membranes moist, throat clear, neck supple, nontender, trachea midline. Lungs: Clear to auscultation, breath sounds equal bilaterally, chest nontender. Heart: S1S2, regular, negative for clicks, rubs, or JVD. Abdomen: Soft, nondistended, nontender. Negative for masses or hepatosplenomegaly. Negative for costovertebral tenderness. Pelvis: Stable nontender. Genitourinary: Deferred. Rectal: Deferred. Extremities: Atraumatic, negative for cords or calf pain. Neurovascular unremarkable. Neuro: Awake, alert, oriented. Cranial nerves grossly unremarkable. Cerebellum unremarkable. Motor and sensory unremarkable throughout. Exam nonfocal. Diagnostics: [] Therapeutics: [Ativan given IV] Impression: [] Plan: [Signs and symptoms consistent with anxiety exacerbation with hyperventilation syndrome and carpal spasm. Will give IV Ativan Zofran and fluids follow for resolution of symptoms after anxiolytic. No clinical evidence of systemic allergic reaction. Patient improved on serial re-exams. Workup unremarkable. No further workup or treatment indicated. Patient agrees with outpatient follow-up and strict return precautions given. comfortable appearing and ambulating easily and without apparent discomfort upon discharge. Definitive disposition and diagnosis as appropriate pending reevaluation and review of above. Abdominal Pain Score (Numeric/FACES): 7 - Related Data Allergies Allergy/AdvReac Type Severity Reaction Status Date / Time tramadol Allergy Blurred Verified 07/09/16 19:48 Vision Home Meds: Home Meds Vit W-Ca,Fe,FA(<1 mg) [ Vitamins] 1 tab PO DAILY 02/14/16 [ History] Ondansetron HCl [Zofran] 4 mg PO Q6H PRN #30 tablet 04/13/16 [Rx] Omeprazole 40 mg PO DAILY 05/11/16 [History] oxyCODONE HCl/Acetaminophen [Percocet 7.5-325 mg Tablet] 1 each PO Q4H PRN #30 tablet 05/17/16 [Rx] Past Medical History - Past Health History Medical/Surgical History: Denies Medical/Surgical History HEENT History: Reports: None Cardiovascular History: Reports: Hypertension, Other (See Below) Other Cardiovascular History: Brief episode of hypertension summer 2014, resolved without medication Respiratory History: Reports: None Gastrointestinal History: Reports: Other (See Below) Other Gastrointestinal History: Gall stones 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 3 living children and currently Musculoskeletal History: Reports: None Neurological History: Reports: Migraines Psychiatric History: Reports: None Endocrine/Metabolic History: Reports: Obesity/BMI 30+ Hematologic History: Reports: None Immunologic History: Reports: None Oncologic (Cancer) History: Reports: None Dermatologic History: Reports: None - Infectious Disease History Infectious Disease History: Reports: None - Past Surgical History Head Surgeries/Procedures: Reports: None HEENT Surgical History: Reports: None Female Surgical History: Reports: Section Endocrine Surgical History: Reports: None Musculoskeletal Surgical History: Reports: None Other Musculoskeletal Surgeries/Procedures:: bunionectomy - Past Imaging History Past Imaging History: Reports: Ultrasound (Normal exam) Social & Family History - Family History Family Medical History: Noncontributory HEENT: Reports: None Cardiac: Reports: None Respiratory: Reports: None GI: Reports: None : Reports: None OBGYN: Reports: None Musculoskeletal: Reports: None Neurological: Reports: None Psychiatric: Reports: None Endocrine/Metabolic: Reports: None Hematologic: Reports: None Immunologic: Reports: None Dermatologic: Reports: None Oncologic: Reports: None - Tobacco Use Smoking Status *Q: Never Smoker Second Hand Smoke Exposure: No - Caffeine Use Caffeine Use: Reports: Coffee - Alcohol Use Days Per Week of Alcohol Use: 0 Number of Drinks Per Day: 1 Total Drinks Per Week: 0 - Recreational Drug Use Recreational Drug Use: No Drug Use in Last 12 Months: No Recreational Drug Type: Reports: Marijuana/Hashish Other Recreational Drug Type: patient denies use; positive urine for THC ED ROS GENERAL - Review of Systems Review Of Systems: See Below (History of present illness) ED EXAM, GENERAL - Physical Exam Exam: See Below (History of present illness) Course - Vital Signs Last Recorded V/S: Last Vital Signs Temp 36.4 C 01/17/17 09:18 Pulse 66 01/17/17 09:50 Resp 18 01/17/17 09:50 BP 156/92 H 01/17/17 09:50 Pulse Ox 98 01/17/17 09:50 - Orders/Labs/Meds Meds: Medications Discontinued Medications Generic Name Dose Route Start Last Admin Trade Name Freq PRN Reason Stop Dose Admin Sodium Chloride 1,000 mls @ 999 mls/hr 01/17/17 07:37 01/17/17 07:50 Normal Saline IV 01/17/17 08:37 999 mls/hr .Bolus ONE Administration Lorazepam 0.5 mg 01/17/17 07:37 01/17/17 07:50 Ativan IVPUSH 01/17/17 07:38 0.5 mg ONETIME ONE Administration Lorazepam 0.5 mg 01/17/17 08:48 01/17/17 08:54 Ativan IVPUSH 01/17/17 08:49 0.5 mg ONETIME ONE Administration Ondansetron HCl 4 mg 01/17/17 07:36 01/17/17 07:50 Zofran IVPUSH 01/17/17 07:37 4 mg ONETIME ONE Administration Departure - Departure Time of Disposition: 10:00 Disposition: Home, Self-Care 01 Condition: Good Clinical Impression: Anxiety, Hyperventilation syndrome Hypertension Qualifiers: Hypertension type: essential hypertension Qualified Code(s): I10 - Essential ( primary) hypertension - Discharge Information Instructions: Panic Attacks Referrals: [facility] [Outside] PCP,None [Primary Care Provider] - Forms: ED Department Discharge Additional Instructions: It appears that you were having an anxiety attack this morning associated with hyperventilation. hyperventilation syndrome involves breathing too fast and blowing off too much carbon dioxide which causes your hands cramp into fists which can be uncomfortable. It's important if this happens to slow down your breathing and breathing into a paper bag as needed will help resolve the symptoms. The problem can be avoided by controlling your anxiety through self- awareness and relaxation techniques. Follow-up with your doctor today to discuss if a prescription for anxiety medicine might be appropriate and beneficial for you. Rest and drink plenty of fluids.
[2017-01-17 09:58] VITALS: BP 156/92
== END 2017-01-17 10:01 | disposition home or self-care (01) ==
LOC: MW.ED 07:16
DX: F45.8 Other somatoform disorders (principal); F41.9 Anxiety disorder, unspecified; I10 Essential (primary) hypertension; E66.9 Obesity, unspecified; Z88.5 Allergy status to narcotic agent; Z98.890 Other specified postprocedural states; Z68.30 Body mass index [BMI] 30.0-30.9, adult
CPT/HCPCS: 96361; 96374; 96375; 96376; 99284; J2060; J2405; J7040; 99283

== ENCOUNTER 2017-04-23 09:51 | Emergency (ER) | payer BC ==
--- NOTE | 2017-04-23 10:28 | EDM.PDOC ---
<[place] - Last Filed: 04/23/17 12:38> ED HPI GENERAL MEDICAL PROBLEM - General Chief Complaint: Behavioral/Psych Stated Complaint: MENTAL HEALTH Time Seen by Provider: 04/23/17 10:26 Source of Information: Reports: Patient History Limitations: Reports: No Limitations - History of Present Illness INITIAL COMMENTS - FREE TEXT/NARRATIVE: History of present illness: [42-year-old female brought in by law enforcement secondary to some concerning text that implied suicidal thoughts. Upon further investigation there was a noose found in the garage. Patient denies any knowledge of nose denies suicidal desire but also makes some conflicting statements about the divorce proceedings between herself and her .] Review of systems: As per history of present illness and below otherwise all systems reviewed and negative. Past medical history: As per history of present illness and as reviewed below otherwise noncontributory. Surgical history: As per history of present illness and as reviewed below otherwise noncontributory. Social history: No reported history of drug or alcohol abuse. Family history: As per history of present illness and as reviewed below otherwise noncontributory. Physical exam: HEENT: Atraumatic, normocephalic, pupils reactive, negative for conjunctival pallor or scleral icterus, mucous membranes moist, throat clear, neck supple, nontender, trachea midline. Lungs: Clear to auscultation, breath sounds equal bilaterally, chest nontender. Heart: S1S2, regular, negative for clicks, rubs, or JVD. Abdomen: Soft, nondistended, nontender. Negative for masses or hepatosplenomegaly. Negative for costovertebral tenderness. Pelvis: Stable nontender. Genitourinary: Deferred. Rectal: Deferred. Extremities: Atraumatic, negative for cords or calf pain. Neurovascular unremarkable. Neuro: Awake, alert, oriented. Cranial nerves II through XII unremarkable. Cerebellum unremarkable. Motor and sensory unremarkable throughout. Exam nonfocal. When discussing this issue the patient patient was in denial about having any issues. With further discussion she did then reveal that she has an acrimonious divorce and that her is plotting against her. Diagnostics: [CBC, CMP, EtOH, drug screen] Therapeutics: [] Impression: [Suicidal thoughts Suicidal statements/via text] Plan: [Transfer to [facility] for psych evaluation and/or treatment] Definitive disposition and diagnosis as appropriate pending reevaluation and review of above. - Related Data Allergies Allergy/AdvReac Type Severity Reaction Status Date / Time tramadol Allergy Blurred Verified 07/09/16 19:48 [facility] Meds: Home Meds Vit W-Ca,Fe,FA(<1 mg) [ Vitamins] 1 tab PO DAILY 02/14/16 [ History] Ondansetron HCl [Zofran] 4 mg PO Q6H PRN #30 tablet 04/13/16 [Rx] Omeprazole 40 mg PO DAILY 05/11/16 [History] oxyCODONE HCl/Acetaminophen [Percocet 7.5-325 mg Tablet] 1 each PO Q4H PRN #30 tablet 05/17/16 [Rx] Citalopram Hydrobromide [Celexa] 20 mg PO DAILY 04/23/17 [History] Past Medical History - Past Health History Medical/Surgical History: Denies Medical/Surgical History HEENT History: Reports: None Cardiovascular History: Reports: Hypertension, Other (See Below) Other Cardiovascular History: Brief episode of hypertension summer 2014 Respiratory History: Reports: None Gastrointestinal History: Reports: Other (See Below) Other Gastrointestinal History: Gall stones Genitourinary History: Reports: None 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 3 living children and currently Musculoskeletal History: Reports: None Neurological History: Reports: Migraines Psychiatric History: Reports: None Endocrine/Metabolic History: Reports: Obesity/BMI 30+ Hematologic History: Reports: None Immunologic History: Reports: None Oncologic (Cancer) History: Reports: None Dermatologic History: Reports: None - Infectious Disease History Infectious Disease History: Reports: None - Past Surgical History Head Surgeries/Procedures: Reports: None HEENT Surgical History: Reports: None GI Surgical History: Reports: Cholecystectomy Female Surgical History: Reports: Section Endocrine Surgical History: Reports: None Musculoskeletal Surgical History: Reports: None Other Musculoskeletal Surgeries/Procedures:: bunionectomy - Past Imaging History Past Imaging History: Reports: Ultrasound (Normal exam) Social & Family History - Family History Family Medical History: Noncontributory HEENT: Reports: None Cardiac: Reports: None Respiratory: Reports: None GI: Reports: None : Reports: None OBGYN: Reports: None Musculoskeletal: Reports: None Neurological: Reports: None Psychiatric: Reports: None Endocrine/Metabolic: Reports: None Hematologic: Reports: None Immunologic: Reports: None Dermatologic: Reports: None Oncologic: Reports: None - Tobacco Use Smoking Status *Q: Never Smoker Second Hand Smoke Exposure: No - Caffeine Use Caffeine Use: Reports: Coffee - Alcohol Use Days Per Week of Alcohol Use: 0 Number of Drinks Per Day: 1 Total Drinks Per Week: 0 - Recreational Drug Use Recreational Drug Use: No Drug Use in Last 12 Months: No Recreational Drug Type: Reports: Marijuana/Hashish Other Recreational Drug Type: patient denies use; positive urine for THC ED ROS GENERAL - Review of Systems Review Of Systems: See Below (See history of present illness) ED EXAM, GENERAL - Physical Exam Exam: See Below (History of present illness) Course - Vital Signs Last Recorded V/S: Last Vital Signs Temp 37.9 C 04/23/17 10:11 Pulse 112 H 04/23/17 10:11 Resp 20 04/23/17 10:11 BP 157/111 H 04/23/17 10:11 Pulse Ox 97 04/23/17 10:11 - Orders/Labs/Meds Orders: Active Orders 24 hr Category Date Time Status EKG Documentation Completion [RC] STAT Care 04/23/17 10:22 Active FREE T3 [REF] Stat Lab 04/23/17 10:38 Received Labs: Laboratory Tests 04/23/17 04/23/17 04/23/17 Range/Units 10:38 10:38 11:12 WBC 4.82 (4.0-11.0) K/uL RBC 4.56 (4.30-5.90) M/uL Hgb 14.5 (12.0-16.0) g/dL Hct 42.1 (36.0-46.0) % MCV 92.3 (80.0-98.0) fL MCH 31.8 (27.0-32.0) pg MCHC 34.4 (31.0-37.0) g/dL RDW Std Deviation 45.4 (28.0-62.0) fl RDW Coeff of [place]abell 13 (11.0-15.0) % Plt Count 325 (150-400) K/uL MPV 9.60 (7.40-12.00) fL Neut % (Auto) 62.7 (48.0-80.0) % Lymph % (Auto) 29.3 (16.0-40.0) % [place] % (Auto) 6.8 (0.0-15.0) % Eos % (Auto) 0.8 (0.0-7.0) % Baso % (Auto) 0.4 (0.0-1.5) % Neut # (Auto) 3.0 (1.4-5.7) K/uL Lymph # (Auto) 1.4 (0.6-2.4) K/uL [place] # (Auto) 0.3 (0.0-0.8) K/uL Eos # (Auto) 0.0 (0.0-0.7) K/uL Baso # (Auto) 0.0 (0.0-0.1) K/uL Nucleated RBC % 0.0 /100WBC Nucleated RBCs # 0 K/uL Sodium 145 (136-146) mmol/L Potassium 4.3 (3.5-5.1) mmol/L Chloride 111 H (98-110) mmol/L Carbon Dioxide 22 (21-31) mmol/L BUN 14 (6.0-23.0) mg/dL Creatinine 0.9 (0.6-1.5) mg/dL Est Cr Clr Drug Dosing 71.75 mL/min Estimated GFR (MDRD) > 60.0 ml/min Glucose 85 (60-110) mg/dL Calcium 8.9 (8.8-10.8) mg/dL Magnesium 1.9 (1.5-2.3) mEq/L Total Bilirubin 0.3 (0.1-1.5) mg/dL AST 15 (5-40) IU/L ALT 16 (8-54) IU/L Alkaline Phosphatase 91 (40-150) Total Protein 7.5 (6.0-8.0) g/dL Albumin 4.6 (3.5-5.0) g/dL Globulin 2.9 (2.0-3.5) g/dL Albumin/Globulin Ratio 1.6 (1.3-2.8) TSH 3rd Generation 1.76 (0.47-5.0) uIU/mL Urine Color Urine Appearance Urine pH (5.0-8.0) Ur Specific [place] (1.001-1.035) Urine Protein (NEGATIVE) mg/dL Urine Glucose (UA) (NEGATIVE) mg/dL Urine Ketones (NEGATIVE) mg/dL Urine Occult Blood (NEGATIVE) Urine Nitrite (NEGATIVE) Urine Bilirubin (NEGATIVE) Urine Urobilinogen (<2.0) EU/dL Ur Leukocyte Esterase (NEGATIVE) Urine RBC (0-2/HPF) Urine WBC (0-5/HPF) Ur Epithelial Cells (NONE-FEW) Urine Bacteria (NEGATIVE) Salicylates < 5.0 (0-20) mg/dL Urine Opiates Screen NEGATIVE (NEGATIVE) Ur Oxycodone Screen NEGATIVE (NEGATIVE) Urine Methadone Screen NEGATIVE (NEGATIVE) Acetaminophen < 3.0 ug/mL Ur Barbiturates Screen NEGATIVE (NEGATIVE) Ur Phencyclidine Scrn NEGATIVE (NEGATIVE) Ur Amphetamine Screen NEGATIVE (NEGATIVE) U Methamphetamines Scrn NEGATIVE (NEGATIVE) U Benzodiazepines Scrn NEGATIVE (NEGATIVE) U Cocaine Metab Screen NEGATIVE (NEGATIVE) U Marijuana (THC) Screen NEGATIVE (NEGATIVE) Ethyl Alcohol 32.9 mg/dL 04/23/17 Range/Units 11:12 WBC (4.0-11.0) K/uL RBC (4.30-5.90) M/uL Hgb (12.0-16.0) g/dL Hct (36.0-46.0) % MCV (80.0-98.0) fL MCH (27.0-32.0) pg MCHC (31.0-37.0) g/dL RDW Std Deviation (28.0-62.0) fl RDW Coeff of [place] (11.0-15.0) % Plt Count (150-400) K/uL MPV (7.40-12.00) fL Neut % (Auto) (48.0-80.0) % Lymph % (Auto) (16.0-40.0) % [place] % (Auto) (0.0-15.0) % Eos % (Auto) (0.0-7.0) % Baso % (Auto) (0.0-1.5) % Neut # (Auto) (1.4-5.7) K/uL Lymph # (Auto) (0.6-2.4) K/uL [place] # (Auto) (0.0-0.8) K/uL Eos # (Auto) (0.0-0.7) K/uL Baso # (Auto) (0.0-0.1) K/uL Nucleated RBC % /100WBC Nucleated RBCs # K/uL Sodium (136-146) mmol/L Potassium (3.5-5.1) mmol/L Chloride (98-110) mmol/L Carbon Dioxide (21-31) mmol/L BUN (6.0-23.0) mg/dL Creatinine (0.6-1.5) mg/dL Est Cr Clr Drug Dosing mL/min Estimated GFR (MDRD) ml/min Glucose (60-110) mg/dL Calcium (8.8-10.8) mg/dL Magnesium (1.5-2.3) mEq/L Total Bilirubin (0.1-1.5) mg/dL AST (5-40) IU/L ALT (8-54) IU/L Alkaline Phosphatase (40-150) Total Protein (6.0-8.0) g/dL Albumin (3.5-5.0) g/dL Globulin (2.0-3.5) g/dL Albumin/Globulin Ratio (1.3-2.8) TSH 3rd Generation (0.47-5.0) uIU/mL Urine Color YELLOW Urine Appearance CLEAR Urine pH 7.0 (5.0-8.0) Ur Specific [place] 1.020 (1.001-1.035) Urine Protein NEGATIVE (NEGATIVE) mg/dL Urine Glucose (UA) NEGATIVE (NEGATIVE) mg/dL Urine Ketones NEGATIVE (NEGATIVE) mg/dL Urine Occult Blood LARGE H (NEGATIVE) Urine Nitrite NEGATIVE (NEGATIVE) Urine Bilirubin NEGATIVE (NEGATIVE) Urine Urobilinogen 0.2 (<2.0) EU/dL Ur Leukocyte Esterase NEGATIVE (NEGATIVE) Urine RBC 0-1 (0-2/HPF) Urine WBC 0-1 (0-5/HPF) Ur Epithelial Cells RARE (NONE-FEW) Urine Bacteria FEW (NEGATIVE) Salicylates (0-20) mg/dL Urine Opiates Screen (NEGATIVE) Ur Oxycodone Screen (NEGATIVE) Urine Methadone Screen (NEGATIVE) Acetaminophen ug/mL Ur Barbiturates Screen (NEGATIVE) Ur Phencyclidine Scrn (NEGATIVE) Ur Amphetamine Screen (NEGATIVE) U Methamphetamines Scrn (NEGATIVE) U Benzodiazepines Scrn (NEGATIVE) U Cocaine Metab Screen (NEGATIVE) U Marijuana (THC) Screen (NEGATIVE) Ethyl Alcohol mg/dL Departure - Departure Time of Disposition: 12:39 Disposition: DC/Tfer to Psych Hosp/Unit 65 Condition: Good Clinical Impression: Suicidal ideation - Discharge Information Referrals: PCP,None [Primary Care Provider] - Forms: ED Department Discharge <Kely [place]rera - Last Filed: 04/23/17 16:55> ED HPI GENERAL MEDICAL PROBLEM - History of Present Illness INITIAL COMMENTS - FREE TEXT/NARRATIVE: Please add to diagnostics: Thyroid testing, EKG UA
[2017-04-23 11:01] LABS: ACETAMINOPHEN < 3.0 ug/mL; CHLORIDE,CL 111 mmol/L (98-110); SODIUM,NA 145 mmol/L (136-146)
[2017-04-23 19:55] VITALS: BP 158/105
== END 2017-04-23 15:00 ==
LOC: MW.ED 09:51
DX: R45.851 Suicidal ideations (principal); I10 Essential (primary) hypertension; Z88.5 Allergy status to narcotic agent; Z79.899 Other long term (current) drug therapy
CPT/HCPCS: 80053; 80305; 81001; 83735; 84443; 84481; 85025; 93005; 99285; G0480; 36415; 99284

== ENCOUNTER 2019-05-16 17:52 | Emergency (ER) | payer SELFPAY ==
[2019-05-16] MEDS ORDERED: propofoL 100 ML ONE (18:10)
[2019-05-16] MEDS ORDERED: Rocuronium 100 MG/10 ML Syringe IVPUSH ONE (18:32)
[2019-05-16] MEDS ORDERED: Etomidate 2 MG/ML 20 ML SDV IVPUSH ONE (18:32)
[2019-05-16] MEDS ORDERED: Sodium Chloride 0.9% 1,000 ML IV SCH (18:45)
[2019-05-16 19:15] LABS: ACETAMINOPHEN <2.0 ug/mL; CARBON DIOXIDE,CO2 23.5 mmol/L (21.0-32.0); CHLORIDE,CL 109 mmol/L (98-107); GLUCOSE RANDOM 98 mg/dL (74-106); SODIUM,NA 148 mmol/L (136-145)
--- NOTE | 2019-05-16 19:37 | EDM.PDOC ---
ED HPI GENERAL MEDICAL PROBLEM - General Chief Complaint: Behavioral/Psych Stated Complaint: OVERDOSE Time Seen by Provider: 05/16/19 17:58 - History of Present Illness INITIAL COMMENTS - FREE TEXT/NARRATIVE: Story is unclear per patient supposedly took at least 17 tablets of lorazepam and drank 750 mL's of vodka prior to arrival in attempt to hurt her self. It is unknown whether she took any other medication. On arrival patient was obtunded had difficulty with speech and not too long after that had brief apneic episode and difficulty with her airway at which time it was decided to intubate this patient. She also reportedly vomited once at the scene. System unable to obtain. Patient son committed suicide 2 days ago. Onset: Today - Related Data Allergies Allergy/AdvReac Type Severity Reaction Status Date / Time tramadol Allergy Blurred Verified 05/16/19 18:26 [facility] Meds: Home Meds Citalopram Hydrobromide [Celexa] 20 mg PO DAILY 04/23/17 [History] Past Medical History - Past Health History Medical/Surgical History: Denies Medical/Surgical History HEENT History: Reports: None Cardiovascular History: Reports: Hypertension, Other (See Below) Other Cardiovascular History: Brief episode of hypertension summer 2014 Respiratory History: Reports: None Gastrointestinal History: Reports: Other (See Below) Other Gastrointestinal History: Gall stones Genitourinary History: Reports: None 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 3 living children and currently Musculoskeletal History: Reports: None Neurological History: Reports: Migraines Psychiatric History: Reports: None Endocrine/Metabolic History: Reports: Obesity/BMI 30+ Hematologic History: Reports: None Immunologic History: Reports: None Oncologic (Cancer) History: Reports: None Dermatologic History: Reports: None - Infectious Disease History Infectious Disease History: Reports: None - Past Surgical History Head Surgeries/Procedures: Reports: None HEENT Surgical History: Reports: None GI Surgical History: Reports: Cholecystectomy Female Surgical History: Reports: Section Endocrine Surgical History: Reports: None Musculoskeletal Surgical History: Reports: None Other Musculoskeletal Surgeries/Procedures:: bunionectomy - Past Imaging History Past Imaging History: Reports: Ultrasound (Normal exam) Social & Family History - Family History Family Medical History: Noncontributory HEENT: Reports: None Cardiac: Reports: None Respiratory: Reports: None GI: Reports: None : Reports: None OBGYN: Reports: None Musculoskeletal: Reports: None Neurological: Reports: None Psychiatric: Reports: None Endocrine/Metabolic: Reports: None Hematologic: Reports: None Immunologic: Reports: None Dermatologic: Reports: None Oncologic: Reports: None - Caffeine Use Caffeine Use: Reports: Coffee ED ROS GENERAL - Review of Systems Review Of Systems: See Below (Unable to obtain) - Physical Exam Exam: See Below Exam Limited By: Altered Mental Status General Appearance: Lethargic, Obtunded Eye Exam: Bilateral Eye: Abnormal EOM, Abnormal Pupil Ears: Normal External Exam, Normal Canal, Hearing Grossly Normal, Normal TMs Nose: Normal Inspection, Normal Mucosa, No Blood Throat/Mouth: Other (Depressed gag reflex) Head Exam: Atraumatic, Normocephalic Neck: Normal Inspection, Supple, Non-Tender, Full Range of Motion Respiratory/Chest: Other (Diminished breath sounds poor inspiratory effort) Cardiovascular: Normal Peripheral Pulses, Regular Rate, Rhythm, No Edema, No Gallop, No JVD, No Murmur, No Rub GI/Abdominal: Normal Bowel Sounds, Soft, Non-Tender, No Organomegaly, No Distention, No Abnormal Bruit, No Mass Neuro Exam (Abbreviated): Slow to Respond, Other (Obtunded) Extremities: Normal Inspection, Normal Range of Motion, Non-Tender, No Pedal Edema, Normal Capillary Refill, Other (Diminished deep tendon reflex nontraumatic) ED Add Procedures - Additional/Other Procedure(s) Procedure(s) (Free Text): Procedure note : rapid sequence intubation done patient preoxygenated and 20 mg of etomidate given as well as 100 mg of succinylcholine given airway suction and patient intubated with 4 MAC blade under direct laryngoscopy with 7.5 ET tube. Number of attempt x 1. Airway confirmed by CO2 sensor and chest x-ray. Complications. Bilateral breath sounds noted Procedure note for central line placement: Subclavian line placed and right subclavian using triple-lumen cath. Using sterile technique and sterile prep sterile fashion drape gloves and gown access of right subclavian without any difficulty. Number of attempt x 1. Good blood return and placement confirmed by chest x-ray. Sterile procedure observed. Patient tolerated procedure well. Critical care time 30 minutes EKG INTERPRETATION EKG Date: 05/16/19 Rhythm: Other (Sinus tachycardia) Rate (Beats/Min): 110 [place]: Normal P-Wave: Present QRS: Normal ST-T: Normal Course - Vital Signs Last Recorded V/S: Last Vital Signs Temp 97.0 F 05/16/19 17:52 Pulse 90 05/16/19 17:52 Resp 12 05/16/19 17:52 BP 149/102 H 05/16/19 17:52 Pulse Ox 98 05/16/19 17:52 - Orders/Labs/Meds Orders: Active Orders 24 hr Category Date Time Status EKG Documentation Completion [RC] STAT Care 05/16/19 18:21 Active Levin Catheter Insertion [Insert Urinary Catheter] [OM. Care 05/16/19 18:45 Ordered PC] Q24H Urinary Catheter Assessment [RC] ASDIRECTED Care 05/16/19 18:32 Active Chest 1V Frontal [CR] Stat Exams 05/16/19 18:31 Taken ACETAMINOPHEN [CHEM] Stat Lab 05/16/19 18:20 Results COMPREHENSIVE METABOLIC PN,CMP [CHEM] Stat Lab 05/16/19 18:20 Results ETHANOL BLOOD MEDICAL [CHEM] Stat Lab 05/16/19 18:20 Results MAGNESIUM [CHEM] Stat Lab 05/16/19 18:20 Results SALICYLATE [CHEM] Stat Lab 05/16/19 18:20 Results TSH [CHEM] Stat Lab 05/16/19 18:20 Results Sodium Chloride 0.9% [Normal Saline] 1,000 ml Med 05/16/19 18:45 Active IV STAT Nasogastric Orogastric Tube Insertion [OM.PC] Stat Oth 05/16/19 18:31 Ordered Medication Orders Sodium Chloride (Normal Saline) 1,000 mls @ 999 mls/hr IV STAT [facility] Labs: Laboratory Tests 05/16/19 05/16/19 05/16/19 Range/Units 18:10 18:10 18:10 WBC (4.0-11.0) K/uL RBC (4.30-5.90) M/uL Hgb (12.0-16.0) g/dL Hct (36.0-46.0) % MCV (80.0-98.0) fL MCH (27.0-32.0) pg MCHC (31.0-37.0) g/dL RDW Std Deviation (28.0-62.0) fl RDW Coeff of Anabell (11.0-15.0) % Plt Count (150-400) K/uL MPV (7.40-12.00) fL Neut % (Auto) (48.0-80.0) % Lymph % (Auto) (16.0-40.0) % [place] % (Auto) (0.0-15.0) % Eos % (Auto) (0.0-7.0) % Baso % (Auto) (0.0-1.5) % Neut # (Auto) (1.4-5.7) K/uL Lymph # (Auto) (0.6-2.4) K/uL [place] # (Auto) (0.0-0.8) K/uL Eos # (Auto) (0.0-0.7) K/uL Baso # (Auto) (0.0-0.1) K/uL Nucleated RBC % /100WBC Nucleated RBCs # K/uL Sodium (136-145) mmol/L Potassium (3.5-5.1) mmol/L Chloride (98-107) mmol/L Carbon Dioxide (21.0-32.0) mmol/L Creatinine (0.6-1.0) mg/dL Est Cr Clr Drug Dosing Estimated GFR (MDRD) ml/min Glucose (74-106) mg/dL Calcium (8.5-10.1) mg/dL Magnesium (1.8-2.4) mg/dL Total Bilirubin (0.2-1.0) mg/dL AST (15-37) IU/L ALT (14-63) IU/L Alkaline Phosphatase (46-116) U/L Total Protein (6.4-8.2) g/dL Albumin (3.4-5.0) g/dL Globulin (2.6-4.0) g/dL Albumin/Globulin Ratio (0.9-1.6) TSH 3rd Generation (0.36-3.74) uIU/mL Urine Color YELLOW Urine Appearance CLEAR Urine pH 7.0 (5.0-8.0) Ur Specific [place] 1.025 (1.001-1.035) Urine Protein NEGATIVE (NEGATIVE) mg/dL Urine Glucose (UA) NEGATIVE (NEGATIVE) mg/dL Urine Ketones TRACE H (NEGATIVE) mg/dL Urine Occult Blood NEGATIVE (NEGATIVE) Urine Nitrite NEGATIVE (NEGATIVE) Urine Bilirubin NEGATIVE (NEGATIVE) Urine Urobilinogen 0.2 (<2.0) EU/dL Ur Leukocyte Esterase NEGATIVE (NEGATIVE) Urine HCG, Qual NEGATIVE (NEGATIVE) Salicylates (0-20) mg/dL Urine Opiates Screen NEGATIVE (NEGATIVE) Ur Oxycodone Screen NEGATIVE (NEGATIVE) Urine Methadone Screen NEGATIVE (NEGATIVE) Acetaminophen ug/mL Ur Barbiturates Screen NEGATIVE (NEGATIVE) Ur Phencyclidine Scrn NEGATIVE (NEGATIVE) Ur Amphetamine Screen NEGATIVE (NEGATIVE) U Methamphetamines Scrn NEGATIVE (NEGATIVE) U Benzodiazepines Scrn POSITIVE (NEGATIVE) U Cocaine Metab Screen NEGATIVE (NEGATIVE) U Marijuana (THC) Screen NEGATIVE (NEGATIVE) Ethyl Alcohol mg/dL 05/16/19 05/16/19 Range/Units 18:20 18:20 WBC 6.75 (4.0-11.0) K/uL RBC 4.62 (4.30-5.90) M/uL Hgb 14.2 (12.0-16.0) g/dL Hct 42.4 (36.0-46.0) % MCV 91.8 (80.0-98.0) fL MCH 30.7 (27.0-32.0) pg MCHC 33.5 (31.0-37.0) g/dL RDW Std Deviation 47.2 (28.0-62.0) fl RDW Coeff of [place]ab[place] 14 (11.0-15.0) % Plt Count 338 (150-400) K/uL MPV 9.90 (7.40-12.00) fL Neut % (Auto) 67.5 (48.0-80.0) % Lymph % (Auto) 24.4 (16.0-40.0) % [place] % (Auto) 6.2 (0.0-15.0) % Eos % (Auto) 1.5 (0.0-7.0) % Baso % (Auto) 0.4 (0.0-1.5) % Neut # (Auto) 4.6 (1.4-5.7) K/uL Lymph # (Auto) 1.7 (0.6-2.4) K/uL [place] # (Auto) 0.4 (0.0-0.8) K/uL Eos # (Auto) 0.1 (0.0-0.7) K/uL Baso # (Auto) 0.0 (0.0-0.1) K/uL Nucleated RBC % 0.0 /100WBC Nucleated RBCs # 0 K/uL Sodium 148 H (136-145) mmol/L Potassium 4.0 (3.5-5.1) mmol/L Chloride 109 H (98-107) mmol/L Carbon Dioxide 23.5 (21.0-32.0) mmol/L Creatinine 0.9 (0.6-1.0) mg/dL Est Cr Clr Drug Dosing TNP Estimated GFR (MDRD) > 60.0 ml/min Glucose 98 (74-106) mg/dL Calcium 9.1 (8.5-10.1) mg/dL Magnesium 2.5 H (1.8-2.4) mg/dL Total Bilirubin 0.2 (0.2-1.0) mg/dL AST 16 (15-37) IU/L ALT 21 (14-63) IU/L Alkaline Phosphatase 76 (46-116) U/L Total Protein 6.9 (6.4-8.2) g/dL Albumin 4.1 (3.4-5.0) g/dL Globulin 2.8 (2.6-4.0) g/dL Albumin/Globulin Ratio 1.5 (0.9-1.6) TSH 3rd Generation 1.10 (0.36-3.74) uIU/mL Urine Color Urine Appearance Urine pH (5.0-8.0) Ur Specific [place] (1.001-1.035) Urine Protein (NEGATIVE) mg/dL Urine Glucose (UA) (NEGATIVE) mg/dL Urine Ketones (NEGATIVE) mg/dL Urine Occult Blood (NEGATIVE) Urine Nitrite (NEGATIVE) Urine Bilirubin (NEGATIVE) Urine Urobilinogen (<2.0) EU/dL Ur Leukocyte Esterase (NEGATIVE) Urine HCG, Qual (NEGATIVE) Salicylates 1.1 (0-20) mg/dL Urine Opiates Screen (NEGATIVE) Ur Oxycodone Screen (NEGATIVE) Urine Methadone Screen (NEGATIVE) Acetaminophen <2.0 ug/mL Ur Barbiturates Screen (NEGATIVE) Ur Phencyclidine Scrn (NEGATIVE) Ur Amphetamine Screen (NEGATIVE) U Methamphetamines Scrn (NEGATIVE) U Benzodiazepines Scrn (NEGATIVE) U Cocaine Metab Screen (NEGATIVE) U Marijuana (THC) Screen (NEGATIVE) Ethyl Alcohol 300 mg/dL Meds: Medications Generic Name Dose Route Start Last Admin Trade Name Freq PRN Reason Stop Dose Admin Sodium Chloride 1,000 mls @ 999 mls/hr 05/16/19 18:45 Normal Saline IV STAT MAGALY Discontinued Medications Generic Name Dose Route Start Last Admin Trade Name Freq PRN Reason Stop Dose Admin Etomidate 20 mg 05/16/19 18:32 Amidate IVPUSH 05/16/19 18:33 ONETIME ONE Propofol Confirm 05/16/19 18:10 Diprivan 100 Ml Administered 05/16/19 18:11 Dose 100 mls @ as directed .ROUTE .STK-MED ONE Rocuronium [place] 50 mg 05/16/19 18:32 Zemuron IVPUSH 05/16/19 18:33 ONETIME ONE Succinylcholine Chloride 100 mg 05/16/19 18:32 Succinylcholine Chloride IV 05/16/19 18:33 ONETIME ONE - Radiology Interpretation Free Text/Narrative:: Decision made to intubate patient to protect patient's airway secondary to overdose Departure - Departure Time of Disposition: 19:44 Disposition: DC/Tfer to Acute Hospital 02 Condition: Critical Clinical Impression: Drug overdose, intentional Qualifiers: Encounter type: initial encounter Qualified Code(s): T50.902A - Poisoning by unspecified drugs, medicaments and biological substances, intentional self-harm , initial encounter Respiratory failure Qualifiers: Chronicity: acute - Discharge Information Referrals: PCP,None [Primary Care Provider] - Critical Care Note - Critical Care Note Total Time (mins): 30 Sepsis Event Note - Evaluation Sepsis Screening Result: No Definite Risk - Focused Exam Vital Signs: Vital Signs Temp Pulse Resp BP Pulse Ox 05/16/19 17:52 97.0 F 90 12 149/102 H 98 Date Exam was Performed: 05/16/19 Time Exam was Performed: 19:32 - My Orders Last 24 Hours: My Active Orders 05/16/19 18:31 Chest 1V Frontal [CR] Stat Nasogastric Orogastric Tube Insertion [OM.PC] Stat 05/16/19 18:32 Urinary Catheter Assessment [RC] ASDIRECTED 05/16/19 18:45 Levin Catheter Insertion [Insert Urinary Catheter] [OM.PC] Q24H Sodium Chloride 0.9% [Normal Saline] 1,000 ml IV STAT - Assessment/Plan Last 24 Hours: My Active Orders 05/16/19 18:31 Chest 1V Frontal [CR] Stat Nasogastric Orogastric Tube Insertion [OM.PC] Stat 05/16/19 18:32 Urinary Catheter Assessment [RC] ASDIRECTED 05/16/19 18:45 Levni Catheter Insertion [Insert Urinary Catheter] [OM.PC] Q24H Sodium Chloride 0.9% [Normal Saline] 1,000 ml IV STAT
[2019-05-16 19:40] LABS: BLOOD UREA NITROGEN,BUN 13 mg/dL (7.0-18.0)
--- NOTE | 2019-05-16 20:40 | CR ---
Chest: 2 portable views of the chest were obtained at time 18:43 PM and 18:48. 1st study shows placement of endotracheal tube within the right mainstem bronchus with collapse of the left lung. Right lung is well aerated. Right subclavian line is seen with tip lying within the superior vena cava. Nasogastric tube is seen with tip lying within the stomach. 2nd film shows repositioning of the right endotracheal tube with tip being close to the oleksandr. Endotracheal tube should be withdrawn by approximately 3 cm for optimal position. 2nd film shows significant improved aeration of the left lung with persistent atelectasis within the left upper lung. Right lung still remains clear. Nasogastric tube and right subclavian 2 are stable. Heart size and mediastinum are normal. Bony structures are grossly intact. Impression: 1. 1st film shows left lung collapse due to position of endotracheal tube within the proximal right mainstem bronchus. 2nd film shows slight withdrawal to the oleksandr with significant improvement in aeration of the left lung with persistent density within the left upper chest presumably due to persistent atelectasis. 2. Endotracheal tube should be withdrawn by approximately 3 cm for optimal position. 3. Satisfactory position of right subclavian line and nasogastric tube. Diagnostic code #3 This report was dictated in [place] [employer] Time
[2019-05-16 21:53] VITALS: BP 129/83; PULSE 123
== END 2019-05-16 19:00 ==
LOC: MW.ED 17:52
DX: J96.90 Respiratory failure, unspecified, unspecified whether with hypoxia or hypercapnia (principal); T42.4X2A Poisoning by benzodiazepines, intentional self-harm, initial encounter; I10 Essential (primary) hypertension; E66.9 Obesity, unspecified; Z88.5 Allergy status to narcotic agent
CPT/HCPCS: 31500; 36415; 36556; 43752; 51702; 71045; 80053; 80305; 80320; 80329; 81003; 81025; 83735; 84443; 85025; 93005; 96360; 99291; J0330; J3490; 99285; G0480